=== PATIENT | female | born 1935 | race African-American/Black ===

== ENCOUNTER 2017-05-30 10:05 | Inpatient (IN) | payer MEDICARE, MEDICAID ==
[~2017-05-30] VITALS: Ht 157.5 cm; Wt 49.9 kg
[~2017-05-30 10:05] MED LIST: ASPIR 8181 MG ORAL; AVAPRO150 MG ORAL; NORVASC5 MG ORAL; RISPERDAL1 MG ORAL; Simvastatin; THIAMINE HCL100 MG ORAL; klonopin
[2017-05-30] MEDS ORDERED: MELATONIN3 MG ORAL (10:10)
[2017-05-30] MEDS ORDERED: Sodium Chloride 500ML 500 ML IV ONE (10:13)
[2017-05-30] MEDS ORDERED: Morphine Sulfate 2mg/ml Inj IM ONE (10:15)
[2017-05-30] MEDS ORDERED: ECOTRIN81 MG PO (10:16)
[2017-05-30] MEDS ORDERED: FISH OIL 1,0001 EAC5 ORAL (10:16)
[2017-05-30] MEDS ORDERED: DOK100 M1 PO (10:16)
[2017-05-30] MEDS ORDERED: NITROFURANTOIN100 MG PO (10:16)
[2017-05-30] MEDS ORDERED: LEVOFLOXACIN500 MG ORAL (10:16)
[2017-05-30] MEDS ORDERED: MEGESTROL ACETA40 MG PO (10:16)
[2017-05-30] MEDS ORDERED: TRILEPTAL150 M2 PO (10:16)
[2017-05-30] MEDS ORDERED: SIMVASTATIN20 MG ORAL (10:16)
[2017-05-30] MEDS ORDERED: DONEPEZIL HCL10 M2 ORAL (10:16)
[2017-05-30] MEDS ORDERED: VITAMIN D400 INTLU ORAL (10:16)
[2017-05-30] MEDS ORDERED: GABAPENTIN100 MG ORAL (10:16)
--- NOTE | 2017-05-30 10:24 | Emergency Room Report ---
History of Present Illness General Chief Complaint: Abdominal Pain Source: Patient, EMS Present Illness HPI 82-year-old female who presents with bilateral groin area pain and hematuria that started this morning She straight caths herself for the past 13 years as she has a bladder prolapse issue and has difficulty emptying her bladder after a failed surgery to correct it She denies fevers, nausea, vomiting, back pain, diarrhea, rectal bleeding, gynecologic complaints She has not tried any medication for her pain, but reported constant achy and mild to moderate intensity, and she came mainly because she was worried about the blood she saw with catheterization Allergies: Coded Allergies: CODEINE (Verified Allergy, Mild, Itching, 01/31/14) Patient History Past Medical History: see triage record Reviewed Nursing Documentation: PMH: Agreed; PSxH: Agreed Nursing Documentation-PMH Hx Cardiac Problems: Yes Hx Hypertension: Yes Hx Asthma: Yes Hx Diabetes: Yes Hx Cancer: No Hx Gastrointestinal Problems: No Hx Cerebrovascular Accident: Yes Review of Systems All Other Systems: negative except mentioned in HPI Physical Exam Vital Signs Date Time Temp Pulse Resp B/P (MAP) Pulse Ox O2 Delivery O2 Flow Rate FiO2 05/30/17 10:03 97.7 86 18 154/94 96 Room Air 97.7 Sp02 EP Interpretation: reviewed, normal General Appearance: no apparent distress, alert, non-toxic Head: normocephalic Eyes: bilateral eye normal inspection, bilateral eye PERRL, bilateral eye EOMI ENT: normal ENT inspection, hearing grossly normal, normal pharynx, no angioedema, normal voice, moist mucus membranes Neck: normal inspection, full range of motion, supple, supple/symm/no masses Respiratory: chest non-tender, lungs clear, normal breath sounds, chest symmetrical, palpation of chest normal Cardiovascular #1: normal peripheral pulses, regular rate, rhythm Cardiovascular #2: 2+ radial (R), 2+ radial (L) Gastrointestinal: normal inspection, non tender, soft, no mass, no guarding, no rebound Rectal: deferred Genitourinary: normal inspection, no CVA tenderness Musculoskeletal: back normal, gait/station normal, normal range of motion, non- tender, no calf tenderness Neurologic: alert, responsive, 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 Treated UTI with IV Rocephin, will need to admit as recent Urine cx with MDR E coli. Still pending CT abdomen and pelvis, will admit. Rhythm Strip Diag. Results Rhythm Strip Time: 13:55 EP Interpretation: yes Rate: 63 Rhythm: NSR, no PVC's, no ectopy Last Vital Signs Date Time Temp Pulse Resp B/P (MAP) Pulse Ox O2 Delivery O2 Flow Rate FiO2 05/30/17 10:03 97.7 86 18 154/94 96 Room Air 97.7 Disposition: ADMITTED INPATIENT Condition: Stable Signed Out To: ABDIEL Ortiz M.D May 30, 2017 10:24
[2017-05-30 10:55] LABS: EOSINOPHILS % (AUTO) 1.5 % (0.0-3.0); HEMATOCRIT 36.2 % (37.0-47.0); LYMPHOCYTES % (AUTO) 30.8 % (20.0-45.0); MEAN CORPUSCULAR VOLUME 91 FL (80-99); MONOCYTES % (AUTO) 9.2 % (1.0-10.0); NEUTROPHILS % (AUTO) 56.4 % (45.0-75.0); PLATELET COUNT 151 K/UL (150-450); RED CELL DISTRIBUTION WIDTH 14.4 % (11.6-14.8); WHITE BLOOD COUNT 3.5 K/UL (4.8-10.8)
[2017-05-30 11:00] LABS: APPEARANCE,URINE TURBID; BILIRUBIN, URINE NEGATIVE (NEGATIVE); GLUCOSE, URINE (UA) NEGATIVE (NEGATIVE); KETONES,URINE NEGATIVE (NEGATIVE); LEUKOCYTE ESTERASE ,URINE 3+ (NEGATIVE); NITRITE,URINE NEGATIVE (NEGATIVE); PH,URINE 8 (4.5-8.0); PROTEIN,URINE 2+ (NEGATIVE); UROBILINOGEN,URINE NORMAL MG/DL (0.0-1.0)
[2017-05-30 11:07] LABS: COLOR,URINE YELLOW
[2017-05-30 11:09] LABS: ANION GAP 6 mmol/L (5-15); BLOOD UREA NITROGEN 15 mg/dL (7-18); CALCIUM 9.5 MG/DL (8.5-10.1); CARBON DIOXIDE 26 MMOL/L (21-32); CHLORIDE 107 MMOL/L (98-107); CREATININE 0.7 MG/DL (0.55-1.30); POTASSIUM 4.9 MMOL/L (3.5-5.1); SODIUM 139 MMOL/L (136-145)
[2017-05-30 11:15] LABS: ALANINE AMINOTRANSFERASE 23 U/L (12-78); ALBUMIN 3.1 G/DL (3.4-5.0); ALBUMIN/GLOBULIN RATIO 0.7 (1.0-2.7); ALKALINE PHOSPHATASE 67 U/L (46-116); ASPARTATE AMINO TRANSFERASE 56 U/L (15-37); BILIRUBIN,TOTAL 0.5 MG/DL (0.2-1.0)
[2017-05-30 11:18] VITALS: BP 151/57
[2017-05-30] MEDS ORDERED: cefTRIAXone 1 GM in D5W 55 ML IVPB ONE (12:15)
[2017-05-30 13:01] VITALS: BP 164/71
--- NOTE | 2017-05-30 14:46 | Diagnostic Imaging Report ---
Clinical Indication: Abdominal pain, bilateral groin area pain and hematuria started this morning Technique: Patient given oral contrast. IV administration nonionic contrast. Venous phase spiral acquisition obtained through the abdomen and pelvis. Multiplanar reconstructions were generated. Total dose length product 578.51 mGycm. CTDIvol(s) 12.1 mGy. Dose reduction achieved using automated exposure control Comparison: none Findings: There are occasional colonic diverticula. No evidence of diverticulitis. Moderate amount of retained stool is seen within the colon. The appendix is not definitely visualized, but there are no findings to suggest acute appendicitis. No small bowel distention or small bowel wall thickening. Contrast is seen throughout the entirety of the small bowel and well into the colon. There is some wall thickening of the distal esophagus. The stomach is grossly unremarkable. The duodenum is unremarkable. No free intraperitoneal air is evident. A small amount of fluid is seen within the pelvis and over the dome of the liver. The liver demonstrates surface nodularity. Recannulized paraumbilical vein varices are demonstrated. The portal vein is somewhat dilated. No focal hepatic abnormality demonstrated. The gallbladder is unremarkable. The pancreas, spleen, adrenals, kidneys are unremarkable. No retroperitoneal or mesenteric mass or adenopathy. No pelvic mass or adenopathy. The bladder demonstrates diffuse wall thickening. Calculi are seen dependently within the bladder lumen posteriorly. Some of these may be within the bladder wall as well. The included lung bases are clear except for some posterior dependent atelectatic changes. The bones demonstrate a anterior wedge/burst compression fracture deformity of the T11 vertebral body, with considerable retropulsion of the posterior wall. The acuity of this is indeterminate, but sclerosis of the posterior body suggests that this is chronic. There is also a less severe wedge compression fracture deformity of the T9 vertebral body. There are degenerative changes of the lower lumbar spine. There is suggestion of slight superior endplate compression deformities of the L3 and L5 vertebral segments. Impression: Thick walled bladder. This could indicate cystitis or chronic bladder outlet obstruction. Dependent calcifications are seen within the bladder lumen. Some of these may also be within the bladder wall. Hepatic surface nodularity consistent with cirrhosis Evidence of portal hypertension, with recanalized periumbilical vein varices and trace ascites Colonic diverticulosis. No evidence of diverticulitis Moderate retained stool; correlate with any history of constipation Distal esophageal mild wall thickening, could indicate esophagitis. Correlate with clinical findings Anterior wedge/burst compression fracture deformity of the T11 vertebral body with posterior retropulsion. Age indeterminate although suspect chronic. Consider MRI for further evaluation if this is symptomatic or otherwise clinically relevant Age-indeterminate less severe wedge compression fracture deformity of the T9 vertebral body. There are are also possible slight superior endplate compression deformities of the L3 and L5 vertebral bodies Posterior dependent pulmonary atelectasis, degenerative lumbar spondylosis incidentally noted The CT scanner at [facility] is accredited by the [employer] and the scans are performed using protocols designed to limit radiation exposure to as low as reasonably achievable to attain images of sufficient resolution adequate for diagnostic evaluation.
[2017-05-30 14:56] VITALS: BP 168/89
[2017-05-30 16:00] VITALS: BP_SYST 136; BP_SYST 148; BP_DIAS 73; BP_DIAS 74
--- NOTE | 2017-05-30 16:49 | Consultation ---
Consult Note Consult Note 82-year-old female who presents with bilateral groin area pain and hematuria that started this morning She straight caths herself for the past 13 years as she has a bladder prolapse issue and has difficulty emptying her bladder after a failed surgery to correct it She denies fevers, nausea, vomiting, back pain, diarrhea, rectal bleeding, gynecologic complaints She has not tried any medication for her pain, but reported constant achy and mild to moderate intensity, and she came mainly because she was worried about the blood she saw with catheterization Allergies: Coded Allergies: CODEINE (Verified Allergy, Mild, Itching, 01/31/14) Patient History Past Medical History: see triage record Reviewed Nursing Documentation: PMH: Agreed; PSxH: Agreed Hx Cardiac Problems: Yes Hx Hypertension: Yes Hx Asthma: Yes Hx Diabetes: Yes Hx Cerebrovascular Accident: Yes Assessment/Plan UTI Bladder Prolapse Psych Ds roldan Rocephin ? Uro eval monitor renal parameters RODRIGO DEJESUS May 30, 2017 16:49
[2017-05-30] MEDS: Docusate 100mg cap ORAL SCH (17:18)
--- NOTE | 2017-05-30 18:52 | Consultation ---
History of Present Illness General Date patient seen: May 30, 2017 Time patient seen: 18:48 Chief Complaint: Abdominal Pain Referring physician: Jim Reason for Consultation: Urinary retention Present Illness HPI 82 yo female with hx of bladder dysfunction/prolapse. Failed repair. Self catheterization dependent for past few years. Noted hematuria on catheterization and abdominal pain. Has had UTIs before. Allergies: Coded Allergies: CODEINE (Verified Allergy, Mild, Itching, 01/31/14) Medication History Scheduled Amlodipine Besylate (Norvasc), 5 MG ORAL DAILY Aspirin (Ecotrin), 81 MG PO DAILY, (Reported) Aspirin* (Aspir 81*), 81 MG ORAL DAILY, (Reported) Docusate Sodium (Dok), 100 MG PO BID, (Reported) Donepezil Hcl* (Donepezil Hcl*), 10 MG ORAL DAILY, (Reported) Gabapentin* (Gabapentin*), 100 MG ORAL BID, (Reported) Irbesartan* (Avapro*), 150 MG ORAL DAILY Levofloxacin (Levofloxacin*), 500 MG ORAL DAILY, (Reported) Megestrol Acetate (Megestrol Acetate), 40 MG PO BID, (Reported) Nitrofurantoin Macrocrystal (Nitrofurantoin), 100 MG PO BID, (Reported) [place]-3 Fatty Acids/Fish Oil (Fish Oil 1,000 Mg Capsule), 1 CAP ORAL DAILY, ( Reported) Oxcarbazepine (Oxcarbazepine), 150 MG PO DAILY, (Reported) Risperidone* (Risperdal*), 0.5 MG ORAL Q12HR Simvastatin (Zocor), 20 MG ORAL DAILY, (Reported) Thiamine Hcl (Vitamin B1*), 100 MG ORAL DAILY Vitamin D (Vitamin D3), 1,000 UNITS ORAL DAILY, (Reported) Scheduled PRN Melatonin (Melatonin), 3 MG ORAL BEDTIME PRN for Insomnia, (Reported) Miscellaneous Medications [Simvastatin], (Reported) [klonopin], (Reported) Patient History History Provided By: Patient Healthcare decision maker N Resuscitation status Advanced Directive on File Past Medical/Surgical History Past Medical/Surgical History: (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, multifocal, multiple vascular territories, chronic (3) Stroke (4) Urinary tract infection Review of Systems All Other Systems: negative except mentioned in HPI Physical Exam General Appearance: no apparent distress HEENT: normocephalic, atraumatic Neck: supple Respiratory/Chest: lungs clear Cardiovascular/Chest: normal rate Abdomen: soft Genitourinary/Rectal: normal genital exam Last 24 Hour Vital Signs Date Time Temp Pulse Resp B/P (MAP) Pulse Ox O2 Delivery O2 Flow Rate FiO2 05/30/17 16:19 68 17 148/67 98 Room Air 05/30/17 16:00 97.3 57 19 148/73 94 97.3 05/30/17 14:56 76 17 168/89 99 Room Air 05/30/17 13:01 63 16 164/71 97 Room Air 05/30/17 11:52 97.7 05/30/17 11:18 64 19 151/57 100 Room Air 05/30/17 11:13 97.7 05/30/17 10:03 97.7 86 18 154/94 96 Room Air 97.7 Laboratory Tests Test 05/30/17 10:32 05/30/17 10:39 White Blood Count 3.5 K/UL (4.8-10.8) L Red Blood Count 4.00 M/UL (4.20-5.40) L Hemoglobin 12.0 G/DL (12.0-16.0) Hematocrit 36.2 % (37.0-47.0) L Mean Corpuscular Volume 91 FL (80-99) Mean Corpuscular Hemoglobin 30.0 PG (27.0-31.0) Mean Corpuscular Hemoglobin Concent 33.1 G/DL (32.0-36.0) Red Cell Distribution Width 14.4 % (11.6-14.8) Platelet Count 151 K/UL (150-450) Mean Platelet Volume 8.8 FL (6.5-10.1) Neutrophils (%) (Auto) 56.4 % (45.0-75.0) Lymphocytes (%) (Auto) 30.8 % (20.0-45.0) Monocytes (%) (Auto) 9.2 % (1.0-10.0) Eosinophils (%) (Auto) 1.5 % (0.0-3.0) Basophils (%) (Auto) 2.0 % (0.0-2.0) Sodium Level 139 MMOL/L (136-145) Potassium Level 4.9 MMOL/L (3.5-5.1) Chloride Level 107 MMOL/L (98-107) Carbon Dioxide Level 26 MMOL/L (21-32) Anion Gap 6 mmol/L (5-15) Blood Urea Nitrogen 15 mg/dL (7-18) Creatinine 0.7 MG/DL (0.55-1.30) Estimat Glomerular Filtration Rate mL/min (>60) Glucose Level 85 MG/DL (74-106) Calcium Level 9.5 MG/DL (8.5-10.1) Total Bilirubin 0.5 MG/DL (0.2-1.0) Aspartate Amino Transf (AST/SGOT) 56 U/L (15-37) H Alanine Aminotransferase (ALT/SGPT) 23 U/L (12-78) Alkaline Phosphatase 67 U/L (46-116) C-Reactive Protein, Quantitative 0.9 mg/dL (0.00-0.90) Total Protein 7.7 G/DL (6.4-8.2) Albumin 3.1 G/DL (3.4-5.0) L Globulin 4.6 g/dL Albumin/Globulin Ratio 0.7 (1.0-2.7) L Lipase 179 U/L (73-393) Urine Color Yellow Urine Appearance Turbid Urine pH 8 (4.5-8.0) Urine Specific [place] 1.015 (1.005-1.035) Urine Protein 2+ (NEGATIVE) H Urine Glucose (UA) Negative (NEGATIVE) Urine Ketones Negative (NEGATIVE) Urine Occult Blood 4+ (NEGATIVE) H Urine Nitrite Negative (NEGATIVE) Urine Bilirubin Negative (NEGATIVE) Urine Urobilinogen Normal MG/DL (0.0-1.0) Urine Leukocyte Esterase 3+ (NEGATIVE) H Urine RBC 5-10 /HPF (0 - 2) H Urine WBC 30-40 /HPF (0 - 2) H Urine Squamous Epithelial Cells Moderate /LPF (NONE/OCC) H Urine Bacteria Many /HPF (NONE) H Height (Feet): 5 Height (Inches): 2.00 Weight (Pounds): 110 Medications Current Medications Medications (Trade) Dose Ordered Sig/Nenita Route PRN Reason Start Time Stop Time Status Last Admin Dose Admin Amlodipine Besylate (Norvasc) 5 mg DAILY ORAL 05/31/17 09:00 06/30/17 08:59 Aspirin (Ecotrin) 81 mg DAILY ORAL 05/31/17 09:00 06/30/17 08:59 Atorvastatin Calcium (Lipitor) 10 mg QHS ORAL 05/30/17 21:00 06/29/17 20:59 Ceftriaxone Sodium 1 gm/ Dextrose 55 ml @ 110 mls/hr Q24H IVPB 05/31/17 13:00 06/07/17 12:59 Docusate Sodium (Colace) 100 mg BID ORAL 05/30/17 18:00 06/29/17 17:59 05/30/17 17:18 Donepezil HCl (Aricept) 10 mg DAILY ORAL 05/31/17 09:00 06/30/17 08:59 Fish Oil (Fish Oil) 1,000 mg DAILY ORAL 05/31/17 09:00 06/30/17 08:59 Gabapentin (Neurontin) 100 mg BID ORAL 05/30/17 18:00 06/29/17 17:59 05/30/17 17:18 Irbesartan (Avapro) 150 mg DAILY ORAL 05/31/17 09:00 06/30/17 08:59 Megestrol Acetate (Megace) 40 mg TWICE A DAY ORAL 05/30/17 18:00 06/29/17 17:59 05/30/17 17:18 Oxcarbazepine (Trileptal) 150 mg DAILY ORAL 05/31/17 09:00 06/30/17 08:59 Risperidone (RisperDAL) 0.5 mg Q12H PRN ORAL Agitation 05/30/17 17:00 06/29/17 16:59 Thiamine HCl (Vitamin B1) 100 mg DAILY ORAL 05/31/17 09:00 06/30/17 08:59 Vitamin D (Vitamin D) 1,000 intlu DAILY ORAL 05/31/17 09:00 06/30/17 08:[address] reviewed: distended bladder, thickened, small stones in bladder Procedure: Under sterile conditions 18 slovenian roldan catheter placed. No blood seen. Irrigated and no clots seen. Assessment/Plan Status: stable Assessment/Plan 82 yo female with nonfunctional bladder. Self catheterizes 2-3 times a day. Recent hematuria noted. UTI on workup. Given bladder stones and chronic retention, roldan placed. Recommend keeping roldan for duration of treatment. Given complex nature of UTI and likely drug resistance recommend 10-14 days. 1. IV abx 2. f/u urine culture 3. continue roldan till UTI treatment complete 4. f/u own urologist, Dr. Calderon. Chris Min M.D. May 30, 2017 18:52
[2017-05-30 20:00] VITALS: BP 116/69
[2017-05-30 23:50] VITALS: BP 96/55
[2017-05-31] MEDS: Docusate 100mg cap ORAL SCH ×2 (08:17→16:57)
[2017-05-31] MEDS: Donepezil 10mg tab ORAL SCH (08:17)
[2017-05-31] MEDS: Aspirin EC 81mg tab ORAL SCH ×2 (08:17→09:00)
[2017-05-31] MEDS: Thiamine 100mg tab ORAL SCH (08:18)
[2017-05-31] MEDS: Irbesartan 150mg tablet ORAL SCH (08:18)
[2017-05-31] MEDS: Vitamin D 1000 IU Tab ORAL SCH (08:18)
[2017-05-31] MEDS: OXcarbazepine 150mg tab ORAL SCH (08:18)
[2017-05-31 08:51] VITALS: BP 149/71
[2017-05-31 11:11] LABS: BASOPHILS % (AUTO) 1.8 % (0.0-2.0); EOSINOPHILS % (AUTO) 1.1 % (0.0-3.0); HEMATOCRIT 35.1 % (37.0-47.0); LYMPHOCYTES % (AUTO) 30.5 % (20.0-45.0); MEAN CORPUSCULAR VOLUME 91 FL (80-99); MONOCYTES % (AUTO) 8.8 % (1.0-10.0); NEUTROPHILS % (AUTO) 57.8 % (45.0-75.0); PLATELET COUNT 166 K/UL (150-450); RED BLOOD COUNT 3.86 M/UL (4.20-5.40); RED CELL DISTRIBUTION WIDTH 14.3 % (11.6-14.8); WHITE BLOOD COUNT 3.9 K/UL (4.8-10.8)
[2017-05-31 11:32] LABS: ALANINE AMINOTRANSFERASE 23 U/L (12-78); ALBUMIN 3.2 G/DL (3.4-5.0); ALBUMIN/GLOBULIN RATIO 0.8 (1.0-2.7); ALKALINE PHOSPHATASE 67 U/L (46-116); ANION GAP 9 mmol/L (5-15); ASPARTATE AMINO TRANSFERASE 27 U/L (15-37); BILIRUBIN,TOTAL 0.4 MG/DL (0.2-1.0); BLOOD UREA NITROGEN 12 mg/dL (7-18); CALCIUM 9.4 MG/DL (8.5-10.1); CARBON DIOXIDE 27 MMOL/L (21-32); CHLORIDE 104 MMOL/L (98-107); CREATININE 0.8 MG/DL (0.55-1.30); POTASSIUM 3.8 MMOL/L (3.5-5.1); SODIUM 140 MMOL/L (136-145)
[2017-05-31 12:00] VITALS: BP 109/57
[2017-05-31 12:30] LABS: PHOSPHORUS 3.9 MG/DL (2.5-4.9)
[2017-05-31] MEDS ORDERED: cefTRIAXone 1 GM in D5W 55 ML IVPB SCH (13:00)
[2017-05-31] MEDS: Piperacillin/Tazobactam 3.375 GM in D5W 110 ML IVPB SCH ×2 (13:52→21:59)
[2017-05-31 16:00] VITALS: BP 118/64
--- NOTE | 2017-05-31 19:05 | Consultation ---
History of Present Illness General Date patient seen: May 31, 2017 Chief Complaint: Abdominal Pain Referring physician: Jim Reason for Consultation: Urinary retention Present Illness Allergies: Coded Allergies: CODEINE (Verified Allergy, Mild, Itching, 01/31/14) Medication History Scheduled Amlodipine Besylate (Norvasc), 5 MG ORAL DAILY Aspirin (Ecotrin), 81 MG PO DAILY, (Reported) Aspirin* (Aspir 81*), 81 MG ORAL DAILY, (Reported) Docusate Sodium (Dok), 100 MG PO BID, (Reported) Donepezil Hcl* (Donepezil Hcl*), 10 MG ORAL DAILY, (Reported) Gabapentin* (Gabapentin*), 100 MG ORAL BID, (Reported) Irbesartan* (Avapro*), 150 MG ORAL DAILY Levofloxacin (Levofloxacin*), 500 MG ORAL DAILY, (Reported) Megestrol Acetate (Megestrol Acetate), 40 MG PO BID, (Reported) Nitrofurantoin Macrocrystal (Nitrofurantoin), 100 MG PO BID, (Reported) [place]-3 Fatty Acids/Fish Oil (Fish Oil 1,000 Mg Capsule), 1 CAP ORAL DAILY, ( Reported) Oxcarbazepine (Oxcarbazepine), 150 MG PO DAILY, (Reported) Risperidone* (Risperdal*), 0.5 MG ORAL Q12HR Simvastatin (Zocor), 20 MG ORAL DAILY, (Reported) Thiamine Hcl (Vitamin B1*), 100 MG ORAL DAILY Vitamin D (Vitamin D3), 1,000 UNITS ORAL DAILY, (Reported) Scheduled PRN Melatonin (Melatonin), 3 MG ORAL BEDTIME PRN for Insomnia, (Reported) Miscellaneous Medications [Simvastatin], (Reported) [klonopin], (Reported) Patient History Healthcare decision maker N Resuscitation status Advanced Directive on File Physical Exam Last 24 Hour Vital Signs Date Time Temp Pulse Resp B/P (MAP) Pulse Ox O2 Delivery O2 Flow Rate FiO2 05/31/17 16:00 97.6 70 19 118/64 98 97.6 05/31/17 12:00 99.5 72 20 109/57 97 99.5 05/31/17 08:51 97.9 74 16 149/71 96 97.9 05/31/17 08:19 74 149/71 05/31/17 08:18 149/71 05/30/17 23:50 97.2 60 18 96/55 97 97.2 05/30/17 20:00 97.5 62 18 116/69 97 97.5 Intake and Output 05/30/17 05/31/17 19:00 07:00 Intake Total 795 ml 295 ml Output Total 75 ml 1450 ml Balance 720 ml -1155 ml Intake Oral 240 ml 295 ml IV Total 555 ml Output Urine Total 75 ml 1450 ml Laboratory Tests Test 05/31/17 10:50 White Blood Count 3.9 K/UL (4.8-10.8) L Red Blood Count 3.86 M/UL (4.20-5.40) L Hemoglobin 12.0 G/DL (12.0-16.0) Hematocrit 35.1 % (37.0-47.0) L Mean Corpuscular Volume 91 FL (80-99) Mean Corpuscular Hemoglobin 31.0 PG (27.0-31.0) Mean Corpuscular Hemoglobin Concent 34.1 G/DL (32.0-36.0) Red Cell Distribution Width 14.3 % (11.6-14.8) Platelet Count 166 K/UL (150-450) Mean Platelet Volume 9.5 FL (6.5-10.1) Neutrophils (%) (Auto) 57.8 % (45.0-75.0) Lymphocytes (%) (Auto) 30.5 % (20.0-45.0) Monocytes (%) (Auto) 8.8 % (1.0-10.0) Eosinophils (%) (Auto) 1.1 % (0.0-3.0) Basophils (%) (Auto) 1.8 % (0.0-2.0) Sodium Level 140 MMOL/L (136-145) Potassium Level 3.8 MMOL/L (3.5-5.1) Chloride Level 104 MMOL/L (98-107) Carbon Dioxide Level 27 MMOL/L (21-32) Anion Gap 9 mmol/L (5-15) Blood Urea Nitrogen 12 mg/dL (7-18) Creatinine 0.8 MG/DL (0.55-1.30) Estimat Glomerular Filtration Rate mL/min (>60) Glucose Level 77 MG/DL (74-106) Hemoglobin A1c 5.3 % (4.3-6.0) Uric Acid 4.4 MG/DL (2.6-7.2) Calcium Level 9.4 MG/DL (8.5-10.1) Phosphorus Level 3.9 MG/DL (2.5-4.9) Magnesium Level 1.9 MG/DL (1.8-2.4) Total Bilirubin 0.4 MG/DL (0.2-1.0) Aspartate Amino Transf (AST/SGOT) 27 U/L (15-37) Alanine Aminotransferase (ALT/SGPT) 23 U/L (12-78) Alkaline Phosphatase 67 U/L (46-116) Pro-B-Type Natriuretic Peptide 109 pg/mL (0-125) Total Protein 7.4 G/DL (6.4-8.2) Albumin 3.2 G/DL (3.4-5.0) L Globulin 4.2 g/dL Albumin/Globulin Ratio 0.8 (1.0-2.7) L Thyroid Stimulating Hormone (TSH) 1.838 uiU/mL (0.358-3.740) Height (Feet): 5 Height (Inches): 2.00 Weight (Pounds): 110 Medications Current Medications Medications (Trade) Dose Ordered Sig/Nenita Route PRN Reason Start Time Stop Time Status Last Admin Dose Admin Acetaminophen (Tylenol) 650 mg QIDPRN PRN ORAL Mild Pain/Temp > 100.5 05/31/17 09:15 06/30/17 09:14 05/31/17 09:22 Amlodipine Besylate (Norvasc) 5 mg DAILY ORAL 05/31/17 09:00 06/30/17 08:59 05/31/17 08:19 Aspirin (Ecotrin) 81 mg DAILY ORAL 05/31/17 09:00 06/30/17 08:59 Atorvastatin Calcium (Lipitor) 10 mg QHS ORAL 05/30/17 21:00 06/29/17 20:59 05/30/17 21:28 Docusate Sodium (Colace) 100 mg BID ORAL 05/30/17 18:00 06/29/17 17:59 05/31/17 16:57 Donepezil HCl (Aricept) 10 mg DAILY ORAL 05/31/17 09:00 06/30/17 08:59 05/31/17 08:17 Fish Oil (Fish Oil) 1,000 mg DAILY ORAL 05/31/17 09:00 06/30/17 08:59 05/31/17 08:17 Gabapentin (Neurontin) 100 mg BID ORAL 05/30/17 18:00 06/29/17 17:59 05/31/17 16:57 Irbesartan (Avapro) 150 mg DAILY ORAL 05/31/17 09:00 06/30/17 08:59 05/31/17 08:18 Megestrol Acetate (Megace) 40 mg TWICE A DAY ORAL 05/30/17 18:00 06/29/17 17:59 05/31/17 16:57 Oxcarbazepine (Trileptal) 150 mg DAILY ORAL 05/31/17 09:00 06/30/17 08:59 05/31/17 08:18 Piperacillin Sod/ Tazobactam Sod 3.375 gm/Dextrose 110 ml @ 27.5 mls/hr EVERY 8 HOURS IVPB 05/31/17 14:00 06/05/17 13:59 05/31/17 13:52 Risperidone (RisperDAL) 0.5 mg Q12H PRN ORAL Agitation 05/30/17 17:00 06/29/17 16:59 Thiamine HCl (Vitamin B1) 100 mg DAILY ORAL 05/31/17 09:00 06/30/17 08:59 05/31/17 08:18 Vitamin D (Vitamin D) 1,000 intlu DAILY ORAL 05/31/17 09:00 06/30/17 08:59 05/31/17 08:18 Assessment/Plan Assessment/Plan (1) Multiple Joint OA (2) Multiple Joint Pain seen dictated SAUNDRA BENNETT May 31, 2017 19:04
[2017-05-31 21:00] VITALS: BP 121/79
[2017-05-31] MEDS: Analgesic Balm 15gm TOPIC SCH (21:00)
--- NOTE | 2017-05-31 22:00 | Consultation ---
DATE OF CONSULTATION: 05/31/2017 INFECTIOUS DISEASE CONSULTATION CONSULTING PHYSICIAN: Todd Fry M.D. PRIMARY ATTENDING PHYSICIAN: Yinka Fernandez M.D. REASON FOR CONSULT: Complicated UTI. HISTORY OF PRESENT ILLNESS: This is an 82-year-old female, admitted yesterday complaining of abdominal pain and hematuria. The patient has history of bladder prolapse and had failed correction surgery many years ago, and in the past 13 years, she used self-catheterization two to three times a day. At the time of admission, had groin pain bilaterally. PAST MEDICAL HISTORY: Significant for urinary retention, bladder prolapse, and dementia. ALLERGIES: The patient is allergic to codeine. MEDICATIONS: Getting ceftriaxone, Tylenol, Norvasc, aspirin, thiamine, Aricept, fish oil, Trileptal, Lipitor, Colace, Megace, and Risperdal. SOCIAL HISTORY: Lives at home. No history of drinking for 25 years. Quit smoking many years ago. . REVIEW OF SYSTEMS: She has poor appetite. No nausea. No vomiting. No diarrhea. No fever. At the time of examination, no abdominal pain, but has left thigh pain. Has on and off back pain. PHYSICAL EXAMINATION: VITAL SIGNS: Temperature 97.9 degrees, pulse 74, and blood pressure is 149/71. GENERAL APPEARANCE: No acute distress. HEAD AND NECK: Has denture. No oral lesion. HEART: Regular. LUNGS: Clear. ABDOMEN: Soft. EXTREMITIES: She has no edema. GENITOURINARY: She has Valenzuela catheter with hematuria. LABORATORY AND DIAGNOSTIC DATA: WBC 3.5, hemoglobin 12, hematocrit 36.2, and platelets 151. Sodium 139, potassium 4.9, chloride 107, bicarb 26, BUN 15, creatinine 0.5, and glucose 85. AST was elevated at 56. The patient had a CT scan of the abdomen and pelvis, which showed evidence of thickened bladder wall, likely cystitis, cirrhosis with portal hypertension, diverticulosis without diverticulitis, compression fracture of T9 and T11. Blood culture growing Gram-negative bacilli and gram-positive organism. IMPRESSION: Complicated urinary tract infection in a patient, who had history of bladder prolapse and dysfunctioning. Has hematuria. Has evidence of cirrhosis, portal hypertension, diverticulosis, and has dementia. RECOMMENDATION: We will change antibiotic from Rocephin to Zosyn. We will follow up the cultures. At the end of my exam, I thank Dr. Fernandez for involving me in the care of this patient. Todd Fry M.D. DR: MARCELO JOB#: [id number] CC: AMY
--- NOTE | 2017-06-01 04:00 | Consultation ---
DATE OF CONSULTATION: 05/31/2017 PAIN MANAGEMENT CONSULTATION CONSULTING PHYSICIAN: Flip Thapa M.D. REFERRING PHYSICIAN: Yinka Fernandez M.D. PHYSICIAN IMPRESSION PRINTER: Jesús Santiago CHIEF COMPLAINT: Joint pain. HISTORY OF PRESENT ILLNESS: This is an 82-year-old female, who is being seen on the Med/Surg floor of [facility] for initial comprehensive pain management consultation. The patient was admitted under the care of Dr. Fernandez. She is complaining of urinary issues and difficulty emptying her bladder having hematuria. Valenzuela in place. Being seen by raw sampler, having pain, started on Tylenol 650 mg tablet one tablet every 6 hours as needed for pain. The patient is comfortable at this time. We were consulted so that the patient would have adequate pain control while here in the hospital. PAST MEDICAL HISTORY: Dementia, CVA, hypercholesterolemia, hypertension, COPD, asthma, neurogenic bladder, and diabetes. ALLERGIES: Codeine. SOCIAL HISTORY: Denies smoking tobacco, drinking alcohol, and IV drug abuse. REVIEW OF SYSTEMS: Denies rash, fever, chills, sweating, dizziness, drowsiness, blurred vision, sore throat, or change in weight. She is complaining of joint pain. PHYSICAL EXAMINATION: GENERAL: Alert, awake, and oriented. VITAL SIGNS: Blood pressure 118/64, heart rate 70, oxygen saturation 98%, respiratory rate 17, and temperature is 97.6 degrees Fahrenheit. HEENT: PERRLA. NECK: Range of motion is full in all directions. No tenderness to paracervical muscles. No adenopathy. LUNGS: Decreased breath sounds bilaterally. HEART: Regular. ABDOMEN: Benign. BACK: Range of motion is decreased in flexion and extension. EXTREMITIES: Upper and lower extremity range of motion is decreased due to the patient's pain and condition. No cyanosis. No clubbing. No edema. Sensory is intact. Reflexes are not obtainable. No adenopathy. ASSESSMENT AND PLAN: This is an 82-year-old female with multiple joint osteoarthritis, multiple joint pain. The patient will be continued on Tylenol as needed and will be started on Bengay to be applied one application 4 times a day. The patient was discussed with Dr. Thapa and Dr. Thapa concurred. We will follow the patient. Thank you very much for the courtesy of this consultation. Flip Thapa M.D. TRE Santiago DR: DAIN JOB#: [id number] CC: AMY
[2017-06-01] MEDS: Piperacillin/Tazobactam 3.375 GM in D5W 110 ML IVPB SCH (06:06)
[2017-06-01 07:23] LABS: HEMATOCRIT 32.7 % (37.0-47.0); HEMOGLOBIN 11.1 G/DL (12.0-16.0); MEAN CORPUSCULAR VOLUME 90 FL (80-99); PLATELET COUNT 157 K/UL (150-450); RED BLOOD COUNT 3.65 M/UL (4.20-5.40); RED CELL DISTRIBUTION WIDTH 14.2 % (11.6-14.8); WHITE BLOOD COUNT 3.4 K/UL (4.8-10.8)
[2017-06-01 07:38] LABS: ALANINE AMINOTRANSFERASE 19 U/L (12-78); ALBUMIN 2.7 G/DL (3.4-5.0); ALBUMIN/GLOBULIN RATIO 0.7 (1.0-2.7); ALKALINE PHOSPHATASE 59 U/L (46-116); ANION GAP 10 mmol/L (5-15); ASPARTATE AMINO TRANSFERASE 27 U/L (15-37); BILIRUBIN,TOTAL 0.3 MG/DL (0.2-1.0); BLOOD UREA NITROGEN 14 mg/dL (7-18); CALCIUM 8.9 MG/DL (8.5-10.1); CARBON DIOXIDE 25 MMOL/L (21-32); CHLORIDE 107 MMOL/L (98-107); POTASSIUM 4.1 MMOL/L (3.5-5.1); SODIUM 142 MMOL/L (136-145)
[2017-06-01 08:20] VITALS: BP 98/57
--- NOTE | 2017-06-01 08:45 | History and Physical Report ---
DATE OF ADMISSION: 05/30/2017 NOTE: POOR AUDIO HISTORY OF PRESENT ILLNESS: The patient admitted for complicated urinary tract infection. The patient has also been catheterizing herself at home for the atonic bladder. The patient got assessed in the ER . The patient also had some suprapubic tenderness. Also, . Denies nausea, vomiting, or diarrhea. Denies abdominal pain. Does have some suprapubic tenderness. Denies shortness of breath. Denies cough. PAST MEDICAL HISTORY: Atonic bladder, constipation, organic brain syndrome, psychosis, hyperlipidemia, history of CVA, history of hypertension, and . PAST SURGICAL HISTORY: Hysterectomy, bladder surgery, . ALLERGIES: Codeine. MEDICATIONS: Aspirin, Norvasc, benazepril, Colace, Avapro, simvastatin, and thiamine. FAMILY HISTORY: Noncontributory. SOCIAL HISTORY: Denies history of drug or alcohol abuse. No history of smoking. REVIEW OF SYSTEMS: HEENT: Denies headaches. RESPIRATORY: Denies shortness of breath. Denies cough. CARDIOVASCULAR: Denies chest pain. . NEUROLOGIC: Denies change in vision or speech pattern. PHYSICAL EXAMINATION: VITAL SIGNS: Temperature 97.9, pulse is 74, and blood pressure 149/71. HEENT: PERRLA. NECK: Supple. No lymphadenopathy. CHEST: Clear to auscultation. GASTROINTESTINAL: Soft, nondistended. Positive bowel sounds. No organomegaly. Abdomen is soft. EXTREMITIES: No edema. Reflexes equal on both sides. NEUROLOGIC: Lower extremity weakness. LABORATORY DATA: WBC of 3.5, hemoglobin of 12, and platelets 151,000. Sodium 139, potassium 4.9, BUN of 15, creatinine of 0.7, and glucose of 85. Albumin of 3.1. ASSESSMENT AND PLAN: Complicated urinary tract infection, chronic pain syndrome. I have asked Dr. Thapa, Dr. Guadalupe as well as Dr. Pako Ortiz to see the patient for the above-mentioned diagnoses and treatment as well as Infectious Disease, Dr. will monitor the patient closely. Yinka Fernandez M.D. DR: Tyrese JOB#: [id number] CC:
--- NOTE | 2017-06-01 08:58 | General Progress Note ---
Assessment/Plan Assessment/Plan (1) Multiple Joint OA (2) Multiple Joint Pain She will be continued on Bengay and Tylenol as needed D/w Dr. Thapa he concurred. Subjective Date patient seen: Jun 01, 2017 Time patient seen: 07:00 - am Allergies: Coded Allergies: CODEINE (Verified Allergy, Mild, Itching, 01/31/14) Subjective REVIEW OF SYSTEMS: Denies rash, fever, chills, sweating, dizziness, drowsiness, blurred vision, sore throat, or change in weight. She is complaining of joint pain. SUBJECTIVE: Patient is in bed reporting no pain at this time. She is comfortable and shows no signs of distress. Objective Last 24 Hour Vital Signs Date Time Temp Pulse Resp B/P (MAP) Pulse Ox O2 Delivery O2 Flow Rate FiO2 06/01/17 08:20 97.7 74 20 98/57 98 97.7 05/31/17 21:00 99.7 69 18 121/79 98 99.7 05/31/17 16:00 97.6 70 19 118/64 98 97.6 05/31/17 12:00 99.5 72 20 109/57 97 99.5 Intake and Output 05/31/17 06/01/17 19:00 07:00 Intake Total 360 ml 360 ml Output Total 450 ml 1500 ml Balance -90 ml -1140 ml Intake Oral 360 ml 360 ml Output Urine Total 450 ml 1500 ml # Bowel Movements 1 Laboratory Tests 05/31/17 10:50: White Blood Count 3.9L, Red Blood Count 3.86L, Hemoglobin 12.0, Hematocrit 35.1L , Mean Corpuscular Volume 91, Mean Corpuscular Hemoglobin 31.0, Mean Corpuscular Hemoglobin Concent 34.1, Red Cell Distribution Width 14.3, Platelet Count 166, Mean Platelet Volume 9.5, Neutrophils (%) (Auto) 57.8, Lymphocytes (% ) (Auto) 30.5, Monocytes (%) (Auto) 8.8, Eosinophils (%) (Auto) 1.1, Basophils ( %) (Auto) 1.8, Sodium Level 140, Potassium Level 3.8, Chloride Level 104, Carbon Dioxide Level 27, Anion Gap 9, Blood Urea Nitrogen 12, Creatinine 0.8, Estimat Glomerular Filtration Rate , Glucose Level 77, Hemoglobin A1c 5.3, Uric Acid 4.4, Calcium Level 9.4, Phosphorus Level 3.9, Magnesium Level 1.9, Total Bilirubin 0.4, Aspartate Amino Transf (AST/SGOT) 27, Alanine Aminotransferase ( ALT/SGPT) 23, Alkaline Phosphatase 67, Pro-B-Type Natriuretic Peptide 109, Total Protein 7.4, Albumin 3.2L, Globulin 4.2, Albumin/Globulin Ratio 0.8L, Thyroid Stimulating Hormone (TSH) 1.838 06/01/17 05:45: White Blood Count 3.4L, Red Blood Count 3.65L, Hemoglobin 11.1L, Hematocrit 32.7L, Mean Corpuscular Volume 90, Mean Corpuscular Hemoglobin 30.5, Mean Corpuscular Hemoglobin Concent 34.0, Red Cell Distribution Width 14.2, Platelet Count 157, Mean Platelet Volume 9.0, Neutrophils (%) (Auto) , Lymphocytes (%) ( Auto) , Monocytes (%) (Auto) , Eosinophils (%) (Auto) , Basophils (%) (Auto) , Sodium Level 142, Potassium Level 4.1, Chloride Level 107, Carbon Dioxide Level 25, Anion Gap 10, Blood Urea Nitrogen 14, Creatinine 1.0, Estimat Glomerular Filtration Rate , Glucose Level 77, Calcium Level 8.9, Total Bilirubin 0.3, Aspartate Amino Transf (AST/SGOT) 27, Alanine Aminotransferase (ALT/SGPT) 19, Alkaline Phosphatase 59, Total Protein 6.5, Albumin 2.7L, Globulin 3.8, Albumin/ Globulin Ratio 0.7L, Neutrophils % (Manual) [Pending], Lymphocytes % (Manual) [ Pending], Platelet Estimate [Pending], Platelet Morphology [Pending] Height (Feet): 5 Height (Inches): 2.00 Weight (Pounds): 110 Objective GENERAL: Alert, awake, and oriented. HEENT: PERRLA. NECK: Range of motion is full in all directions. No tenderness to paracervical muscles. No adenopathy. LUNGS: Decreased breath sounds bilaterally. HEART: Regular. ABDOMEN: Benign. BACK: Range of motion is decreased in flexion and extension. EXTREMITIES: Upper and lower extremity range of motion is decreased due to the patient's pain and condition. No cyanosis. No clubbing. No edema. Sensory is intact. Reflexes are not obtainable. No adenopathy. SAUNDRA BENNETT Jun 01, 2017 08:58
[2017-06-01] MEDS: Irbesartan 150mg tablet ORAL SCH (09:00)
[2017-06-01] MEDS: Analgesic Balm 15gm TOPIC SCH ×2 (09:00→13:00)
[2017-06-01] MEDS: OXcarbazepine 150mg tab ORAL SCH (09:11)
[2017-06-01] MEDS: Aspirin EC 81mg tab ORAL SCH (09:11)
[2017-06-01] MEDS: Vitamin D 1000 IU Tab ORAL SCH (09:11)
[2017-06-01] MEDS: Donepezil 10mg tab ORAL SCH (09:11)
[2017-06-01] MEDS: Thiamine 100mg tab ORAL SCH (09:12)
[2017-06-01] MEDS: Docusate 100mg cap ORAL SCH ×2 (09:12→17:09)
[2017-06-01 11:47] VITALS: BP 101/62
--- NOTE | 2017-06-01 12:50 | Consultation ---
History of Present Illness General Date patient seen: May 31, 2017 Chief Complaint: Abdominal Pain Referring physician: Jim Reason for Consultation: Urinary retention Present Illness HPI 82-year-old female who presents with bilateral groin area pain and hematuria. The pt has hx of dementia and agitation. The pt was c/o abdominal pain. The pt was confused and was unable to have rational conversation. No agitation.The pt was admitted on risperdal and aricept. the pt has impairment of cognition. Allergies: Coded Allergies: CODEINE (Verified Allergy, Mild, Itching, 01/31/14) Medication History Scheduled Amlodipine Besylate (Norvasc), 5 MG ORAL DAILY Aspirin (Ecotrin), 81 MG PO DAILY, (Reported) Aspirin* (Aspir 81*), 81 MG ORAL DAILY, (Reported) Docusate Sodium (Dok), 100 MG PO BID, (Reported) Donepezil Hcl* (Donepezil Hcl*), 10 MG ORAL DAILY, (Reported) Gabapentin* (Gabapentin*), 100 MG ORAL BID, (Reported) Irbesartan* (Avapro*), 150 MG ORAL DAILY Levofloxacin (Levofloxacin*), 500 MG ORAL DAILY, (Reported) Megestrol Acetate (Megestrol Acetate), 40 MG PO BID, (Reported) Nitrofurantoin Macrocrystal (Nitrofurantoin), 100 MG PO BID, (Reported) Hastings-3 Fatty Acids/Fish Oil (Fish Oil 1,000 Mg Capsule), 1 CAP ORAL DAILY, ( Reported) Oxcarbazepine (Oxcarbazepine), 150 MG PO DAILY, (Reported) Risperidone* (Risperdal*), 0.5 MG ORAL Q12HR Simvastatin (Zocor), 20 MG ORAL DAILY, (Reported) Thiamine Hcl (Vitamin B1*), 100 MG ORAL DAILY Vitamin D (Vitamin D3), 1,000 UNITS ORAL DAILY, (Reported) Scheduled PRN Melatonin (Melatonin), 3 MG ORAL BEDTIME PRN for Insomnia, (Reported) Miscellaneous Medications [Simvastatin], (Reported) [klonopin], (Reported) Patient History Limited by: medical condition History Provided By: Patient, Medical Record, PMD Healthcare decision maker N Resuscitation status Advanced Directive on File Past Medical/Surgical History Past Medical/Surgical History: (1) Encephalopathy, hypertensive (2) HTN (hypertension), benign (3) Hematuria (4) Urinary tract infection (5) Stroke (6) Vascular dementia with delirium (7) Arterial ischemic stroke, multifocal, multiple vascular territories, chronic Review of Systems Psychiatric: Reports: prior hx, anxiety, depressed feelings, emotional problems Physical Exam General Appearance: WD/WN, no apparent distress, alert, confused Neurologic: depressed affect Last 24 Hour Vital Signs Date Time Temp Pulse Resp B/P (MAP) Pulse Ox O2 Delivery O2 Flow Rate FiO2 06/01/17 11:47 98.2 72 20 101/62 98 98.2 06/01/17 10:11 97.7 06/01/17 09:12 97.7 06/01/17 09:00 98/57 06/01/17 09:00 74 98/57 06/01/17 08:20 97.7 74 20 98/57 98 97.7 05/31/17 21:00 99.7 69 18 121/79 98 99.7 05/31/17 16:00 97.6 70 19 118/64 98 97.6 Intake and Output 05/31/17 06/01/17 19:00 07:00 Intake Total 360 ml 360 ml Output Total 450 ml 1500 ml Balance -90 ml -1140 ml Intake Oral 360 ml 360 ml Output Urine Total 450 ml 1500 ml # Bowel Movements 1 Laboratory Tests Test 06/01/17 05:45 White Blood Count 3.4 K/UL (4.8-10.8) L Red Blood Count 3.65 M/UL (4.20-5.40) L Hemoglobin 11.1 G/DL (12.0-16.0) L Hematocrit 32.7 % (37.0-47.0) L Mean Corpuscular Volume 90 FL (80-99) Mean Corpuscular Hemoglobin 30.5 PG (27.0-31.0) Mean Corpuscular Hemoglobin Concent 34.0 G/DL (32.0-36.0) Red Cell Distribution Width 14.2 % (11.6-14.8) Platelet Count 157 K/UL (150-450) Mean Platelet Volume 9.0 FL (6.5-10.1) Neutrophils (%) (Auto) % (45.0-75.0) Lymphocytes (%) (Auto) % (20.0-45.0) Monocytes (%) (Auto) % (1.0-10.0) Eosinophils (%) (Auto) % (0.0-3.0) Basophils (%) (Auto) % (0.0-2.0) Differential Total Cells Counted 100 Neutrophils % (Manual) 49 % (45-75) Lymphocytes % (Manual) 42 % (20-45) Monocytes % (Manual) 7 % (1-10) Eosinophils % (Manual) 2 % (0-3) Basophils % (Manual) 0 % (0-2) Band Neutrophils 0 % (0-8) Platelet Estimate Adequate Platelet Morphology Normal Anisocytosis 1+ Sodium Level 142 MMOL/L (136-145) Potassium Level 4.1 MMOL/L (3.5-5.1) Chloride Level 107 MMOL/L (98-107) Carbon Dioxide Level 25 MMOL/L (21-32) Anion Gap 10 mmol/L (5-15) Blood Urea Nitrogen 14 mg/dL (7-18) Creatinine 1.0 MG/DL (0.55-1.30) Estimat Glomerular Filtration Rate mL/min (>60) Glucose Level 77 MG/DL (74-106) Calcium Level 8.9 MG/DL (8.5-10.1) Total Bilirubin 0.3 MG/DL (0.2-1.0) Aspartate Amino Transf (AST/SGOT) 27 U/L (15-37) Alanine Aminotransferase (ALT/SGPT) 19 U/L (12-78) Alkaline Phosphatase 59 U/L (46-116) Total Protein 6.5 G/DL (6.4-8.2) Albumin 2.7 G/DL (3.4-5.0) L Globulin 3.8 g/dL Albumin/Globulin Ratio 0.7 (1.0-2.7) L Height (Feet): 5 Height (Inches): 2.00 Weight (Pounds): 110 Medications Current Medications Medications (Trade) Dose Ordered Sig/Nenita Route PRN Reason Start Time Stop Time Status Last Admin Dose Admin Acetaminophen (Tylenol) 650 mg QIDPRN PRN ORAL Mild Pain/Temp > 100.5 05/31/17 09:15 06/30/17 09:14 06/01/17 09:12 Amlodipine Besylate (Norvasc) 5 mg DAILY ORAL 05/31/17 09:00 06/30/17 08:59 05/31/17 08:19 Aspirin (Ecotrin) 81 mg DAILY ORAL 05/31/17 09:00 06/30/17 08:59 06/01/17 09:11 Atorvastatin Calcium (Lipitor) 10 mg QHS ORAL 05/30/17 21:00 06/29/17 20:59 05/31/17 21:55 Docusate Sodium (Colace) 100 mg BID ORAL 05/30/17 18:00 06/29/17 17:59 06/01/17 09:12 Donepezil HCl (Aricept) 10 mg DAILY ORAL 05/31/17 09:00 06/30/17 08:59 06/01/17 09:11 Fish Oil (Fish Oil) 1,000 mg DAILY ORAL 05/31/17 09:00 06/30/17 08:59 06/01/17 09:12 Gabapentin (Neurontin) 100 mg BID ORAL 05/30/17 18:00 06/29/17 17:59 06/01/17 09:12 Irbesartan (Avapro) 150 mg DAILY ORAL 05/31/17 09:00 06/30/17 08:59 05/31/17 08:18 Megestrol Acetate (Megace) 40 mg TWICE A DAY ORAL 05/30/17 18:00 06/29/17 17:59 06/01/17 09:12 Menthol/Methyl Salicylate (Bengay) 1 applic FOUR TIMES A DAY TOPIC 05/31/17 21:00 06/30/17 20:59 Oxcarbazepine (Trileptal) 150 mg DAILY ORAL 05/31/17 09:00 06/30/17 08:59 06/01/17 09:11 Piperacillin Sod/ Tazobactam Sod 3.375 gm/Dextrose 110 ml @ 27.5 mls/hr EVERY 8 HOURS IVPB 05/31/17 14:00 06/05/17 13:59 06/01/17 06:06 Risperidone (RisperDAL) 0.5 mg Q12H PRN ORAL Agitation 05/30/17 17:00 06/29/17 16:59 Thiamine HCl (Vitamin B1) 100 mg DAILY ORAL 05/31/17 09:00 06/30/17 08:59 06/01/17 09:12 Vitamin D (Vitamin D) 1,000 intlu DAILY ORAL 05/31/17 09:00 06/30/17 08:59 06/01/17 09:11 Assessment/Plan Status: stable Assessment/Plan Encephalopathy Dementia with behavioral disturbance -cont risperdal prn -cont Aricept. -the pt was given Wayne Ornelas M.D. Jun 01, 2017 12:50
--- NOTE | 2017-06-01 12:53 | General Progress Note ---
Assessment/Plan Status: stable, progressing Assessment/Plan Encephalopathy Dementia with behavioral disturbance -cont risperdal prn -cont Aricept. -the pt was given ro Subjective Date patient seen: Jun 01, 2017 Neurologic/Psychiatric: Reports: anxiety, depressed, emotional problems Allergies: Coded Allergies: CODEINE (Verified Allergy, Mild, Itching, 01/31/14) Subjective the pt is less congused today and more engaged. Objective Last 24 Hour Vital Signs Date Time Temp Pulse Resp B/P (MAP) Pulse Ox O2 Delivery O2 Flow Rate FiO2 06/01/17 11:47 98.2 72 20 101/62 98 98.2 06/01/17 10:11 97.7 06/01/17 09:12 97.7 06/01/17 09:00 98/57 06/01/17 09:00 74 98/57 06/01/17 08:20 97.7 74 20 98/57 98 97.7 05/31/17 21:00 99.7 69 18 121/79 98 99.7 05/31/17 16:00 97.6 70 19 118/64 98 97.6 Intake and Output 05/31/17 06/01/17 19:00 07:00 Intake Total 360 ml 360 ml Output Total 450 ml 1500 ml Balance -90 ml -1140 ml Intake Oral 360 ml 360 ml Output Urine Total 450 ml 1500 ml # Bowel Movements 1 Laboratory Tests 06/01/17 05:45: White Blood Count 3.4L, Red Blood Count 3.65L, Hemoglobin 11.1L, Hematocrit 32.7L, Mean Corpuscular Volume 90, Mean Corpuscular Hemoglobin 30.5, Mean Corpuscular Hemoglobin Concent 34.0, Red Cell Distribution Width 14.2, Platelet Count 157, Mean Platelet Volume 9.0, Neutrophils (%) (Auto) , Lymphocytes (%) ( Auto) , Monocytes (%) (Auto) , Eosinophils (%) (Auto) , Basophils (%) (Auto) , Differential Total Cells Counted 100, Neutrophils % (Manual) 49, Lymphocytes % ( Manual) 42, Monocytes % (Manual) 7, Eosinophils % (Manual) 2, Basophils % ( Manual) 0, Band Neutrophils 0, Platelet Estimate Adequate, Platelet Morphology Normal, Anisocytosis 1+, Sodium Level 142, Potassium Level 4.1, Chloride Level 107, Carbon Dioxide Level 25, Anion Gap 10, Blood Urea Nitrogen 14, Creatinine 1.0, Estimat Glomerular Filtration Rate , Glucose Level 77, Calcium Level 8.9, Total Bilirubin 0.3, Aspartate Amino Transf (AST/SGOT) 27, Alanine Aminotransferase (ALT/SGPT) 19, Alkaline Phosphatase 59, Total Protein 6.5, Albumin 2.7L, Globulin 3.8, Albumin/Globulin Ratio 0.7L Height (Feet): 5 Height (Inches): 2.00 Weight (Pounds): 110 General Appearance: no apparent distress, alert Neurologic: oriented x 3, responsive, depressed affect Wayne Conti M.D. Jun 01, 2017 12:53
--- NOTE | 2017-06-01 13:02 | Infectious Diseases Prog Note ---
Assessment/Plan Assessment/Plan A; E. coli UTI bladder prolapse Cirrhosis Osteoporosis compression fracture dementia P; Change Zosyn to Rocephin Subjective ROS Limited/Unobtainable: No Cardiovascular: Reports: no symptoms Gastrointestinal/Abdominal: Reports: no symptoms Musculoskeletal: Reports: pain, other - on kness, thigh Allergies: Coded Allergies: CODEINE (Verified Allergy, Mild, Itching, 01/31/14) Objective Vital Signs Last 24 Hour Vital Signs Date Time Temp Pulse Resp B/P (MAP) Pulse Ox O2 Delivery O2 Flow Rate FiO2 06/01/17 11:47 98.2 72 20 101/62 98 98.2 06/01/17 10:11 97.7 06/01/17 09:12 97.7 06/01/17 09:00 98/57 06/01/17 09:00 74 98/57 06/01/17 08:20 97.7 74 20 98/57 98 97.7 05/31/17 21:00 99.7 69 18 121/79 98 99.7 05/31/17 16:00 97.6 70 19 118/64 98 97.6 Height (Feet): 5 Height (Inches): 2.00 Weight (Pounds): 110 HEENT: mucous membranes moist Respiratory/Chest: lungs clear Cardiovascular: normal rate Abdomen: soft, non tender Genitourinary: other - Valenzuela catheter, hematuria decreased Extremities: no edema Neurologic/Psychiatric: alert, responsive Microbiology Date/Time Source Procedure Growth Status 05/30/17 10:39 Urine,Clean Catch Urine Culture - Final Escherichia Coli Mixed Gram Positive Organism Complete Laboratory Tests Test 06/01/17 05:45 White Blood Count 3.4 K/UL (4.8-10.8) L Red Blood Count 3.65 M/UL (4.20-5.40) L Hemoglobin 11.1 G/DL (12.0-16.0) L Hematocrit 32.7 % (37.0-47.0) L Mean Corpuscular Volume 90 FL (80-99) Mean Corpuscular Hemoglobin 30.5 PG (27.0-31.0) Mean Corpuscular Hemoglobin Concent 34.0 G/DL (32.0-36.0) Red Cell Distribution Width 14.2 % (11.6-14.8) Platelet Count 157 K/UL (150-450) Mean Platelet Volume 9.0 FL (6.5-10.1) Neutrophils (%) (Auto) % (45.0-75.0) Lymphocytes (%) (Auto) % (20.0-45.0) Monocytes (%) (Auto) % (1.0-10.0) Eosinophils (%) (Auto) % (0.0-3.0) Basophils (%) (Auto) % (0.0-2.0) Differential Total Cells Counted 100 Neutrophils % (Manual) 49 % (45-75) Lymphocytes % (Manual) 42 % (20-45) Monocytes % (Manual) 7 % (1-10) Eosinophils % (Manual) 2 % (0-3) Basophils % (Manual) 0 % (0-2) Band Neutrophils 0 % (0-8) Platelet Estimate Adequate Platelet Morphology Normal Anisocytosis 1+ Sodium Level 142 MMOL/L (136-145) Potassium Level 4.1 MMOL/L (3.5-5.1) Chloride Level 107 MMOL/L (98-107) Carbon Dioxide Level 25 MMOL/L (21-32) Anion Gap 10 mmol/L (5-15) Blood Urea Nitrogen 14 mg/dL (7-18) Creatinine 1.0 MG/DL (0.55-1.30) Estimat Glomerular Filtration Rate mL/min (>60) Glucose Level 77 MG/DL (74-106) Calcium Level 8.9 MG/DL (8.5-10.1) Total Bilirubin 0.3 MG/DL (0.2-1.0) Aspartate Amino Transf (AST/SGOT) 27 U/L (15-37) Alanine Aminotransferase (ALT/SGPT) 19 U/L (12-78) Alkaline Phosphatase 59 U/L (46-116) Total Protein 6.5 G/DL (6.4-8.2) Albumin 2.7 G/DL (3.4-5.0) L Globulin 3.8 g/dL Albumin/Globulin Ratio 0.7 (1.0-2.7) L Current Medications Medications (Trade) Dose Ordered Sig/Nenita Route PRN Reason Start Time Stop Time Status Last Admin Dose Admin Acetaminophen (Tylenol) 650 mg QIDPRN PRN ORAL Mild Pain/Temp > 100.5 05/31/17 09:15 06/30/17 09:14 06/01/17 09:12 Amlodipine Besylate (Norvasc) 5 mg DAILY ORAL 05/31/17 09:00 06/30/17 08:59 05/31/17 08:19 Aspirin (Ecotrin) 81 mg DAILY ORAL 05/31/17 09:00 06/30/17 08:59 06/01/17 09:11 Atorvastatin Calcium (Lipitor) 10 mg QHS ORAL 05/30/17 21:00 06/29/17 20:59 05/31/17 21:55 Docusate Sodium (Colace) 100 mg BID ORAL 05/30/17 18:00 06/29/17 17:59 06/01/17 09:12 Donepezil HCl (Aricept) 10 mg DAILY ORAL 05/31/17 09:00 06/30/17 08:59 06/01/17 09:11 Fish Oil (Fish Oil) 1,000 mg DAILY ORAL 05/31/17 09:00 06/30/17 08:59 06/01/17 09:12 Gabapentin (Neurontin) 100 mg BID ORAL 05/30/17 18:00 06/29/17 17:59 06/01/17 09:12 Irbesartan (Avapro) 150 mg DAILY ORAL 05/31/17 09:00 06/30/17 08:59 05/31/17 08:18 Megestrol Acetate (Megace) 40 mg TWICE A DAY ORAL 05/30/17 18:00 06/29/17 17:59 06/01/17 09:12 Menthol/Methyl Salicylate (Bengay) 1 applic FOUR TIMES A DAY TOPIC 05/31/17 21:00 06/30/17 20:59 Oxcarbazepine (Trileptal) 150 mg DAILY ORAL 05/31/17 09:00 06/30/17 08:59 06/01/17 09:11 Piperacillin Sod/ Tazobactam Sod 3.375 gm/Dextrose 110 ml @ 27.5 mls/hr EVERY 8 HOURS IVPB 05/31/17 14:00 06/05/17 13:59 06/01/17 06:06 Risperidone (RisperDAL) 0.5 mg Q12H PRN ORAL Agitation 05/30/17 17:00 06/29/17 16:59 Thiamine HCl (Vitamin B1) 100 mg DAILY ORAL 05/31/17 09:00 06/30/17 08:59 06/01/17 09:12 Vitamin D (Vitamin D) 1,000 intlu DAILY ORAL 05/31/17 09:00 06/30/17 08:59 06/01/17 09:11 EMMA MARIO Jun 01, 2017 13:02
--- NOTE | 2017-06-01 13:55 | Nephrology Progress Note ---
Assessment/Plan Problem List: (1) Hematuria (2) Urinary tract infection (3) HTN (hypertension), benign Assessment UTI Bladder Prolapse Psych Ds Plan per ID and Uro Subjective ROS Limited/Unobtainable: No Constitutional: Reports: malaise Objective Objective Last 24 Hour Vital Signs Date Time Temp Pulse Resp B/P (MAP) Pulse Ox O2 Delivery O2 Flow Rate FiO2 06/01/17 11:47 98.2 72 20 101/62 98 98.2 06/01/17 10:11 97.7 06/01/17 09:12 97.7 06/01/17 09:00 98/57 06/01/17 09:00 74 98/57 06/01/17 08:20 97.7 74 20 98/57 98 97.7 05/31/17 21:00 99.7 69 18 121/79 98 99.7 05/31/17 16:00 97.6 70 19 118/64 98 97.6 Intake and Output 05/31/17 06/01/17 19:00 07:00 Intake Total 360 ml 360 ml Output Total 450 ml 1500 ml Balance -90 ml -1140 ml Intake Oral 360 ml 360 ml Output Urine Total 450 ml 1500 ml # Bowel Movements 1 Laboratory Tests 06/01/17 05:45: White Blood Count 3.4L, Red Blood Count 3.65L, Hemoglobin 11.1L, Hematocrit 32.7L, Mean Corpuscular Volume 90, Mean Corpuscular Hemoglobin 30.5, Mean Corpuscular Hemoglobin Concent 34.0, Red Cell Distribution Width 14.2, Platelet Count 157, Mean Platelet Volume 9.0, Neutrophils (%) (Auto) , Lymphocytes (%) ( Auto) , Monocytes (%) (Auto) , Eosinophils (%) (Auto) , Basophils (%) (Auto) , Differential Total Cells Counted 100, Neutrophils % (Manual) 49, Lymphocytes % ( Manual) 42, Monocytes % (Manual) 7, Eosinophils % (Manual) 2, Basophils % ( Manual) 0, Band Neutrophils 0, Platelet Estimate Adequate, Platelet Morphology Normal, Anisocytosis 1+, Sodium Level 142, Potassium Level 4.1, Chloride Level 107, Carbon Dioxide Level 25, Anion Gap 10, Blood Urea Nitrogen 14, Creatinine 1.0, Estimat Glomerular Filtration Rate , Glucose Level 77, Calcium Level 8.9, Total Bilirubin 0.3, Aspartate Amino Transf (AST/SGOT) 27, Alanine Aminotransferase (ALT/SGPT) 19, Alkaline Phosphatase 59, Total Protein 6.5, Albumin 2.7L, Globulin 3.8, Albumin/Globulin Ratio 0.7L Height (Feet): 5 Height (Inches): 2.00 Weight (Pounds): 110 General Appearance: no apparent distress Cardiovascular: normal rate Respiratory/Chest: lungs clear Abdomen: soft RODRIGO DEJESUS Jun 01, 2017 13:55
[2017-06-01] MEDS: cefTRIAXone 1 GM in D5W 55 ML IVPB SCH (14:59)
[2017-06-01 15:57] VITALS: BP 98/55
[2017-06-01 21:00] VITALS: BP 158/85
--- NOTE | 2017-06-01 21:23 | General Progress Note ---
Assessment/Plan Problem List: (1) Urinary tract infection ICD Codes: N39.0 - Urinary tract infection, site not specified SNOMED: 52836941 (2) Hematuria ICD Codes: R31.9 - Hematuria, unspecified SNOMED: 73218549 (3) HTN (hypertension), benign ICD Codes: I10 - HTN (hypertension), benign SNOMED: 51540989 Status: progressing Assessment/Plan uti is improving abx per id afebrile vitals stable atonic bladder self caths prn Subjective ROS Limited/Unobtainable: Yes Allergies: Coded Allergies: CODEINE (Verified Allergy, Mild, Itching, 01/31/14) Objective Last 24 Hour Vital Signs Date Time Temp Pulse Resp B/P (MAP) Pulse Ox O2 Delivery O2 Flow Rate FiO2 06/01/17 17:21 98.1 06/01/17 16:22 98.1 06/01/17 15:57 98.1 82 20 98/55 99 98.1 06/01/17 11:47 98.2 72 20 101/62 98 98.2 06/01/17 09:12 97.7 06/01/17 09:00 98/57 06/01/17 09:00 74 98/57 06/01/17 08:20 97.7 74 20 98/57 98 97.7 Intake and Output 05/31/17 06/01/17 19:00 07:00 Intake Total 360 ml 360 ml Output Total 450 ml 1500 ml Balance -90 ml -1140 ml Intake Oral 360 ml 360 ml Output Urine Total 450 ml 1500 ml # Bowel Movements 1 Laboratory Tests 06/01/17 05:45: White Blood Count 3.4L, Red Blood Count 3.65L, Hemoglobin 11.1L, Hematocrit 32.7L, Mean Corpuscular Volume 90, Mean Corpuscular Hemoglobin 30.5, Mean Corpuscular Hemoglobin Concent 34.0, Red Cell Distribution Width 14.2, Platelet Count 157, Mean Platelet Volume 9.0, Neutrophils (%) (Auto) , Lymphocytes (%) ( Auto) , Monocytes (%) (Auto) , Eosinophils (%) (Auto) , Basophils (%) (Auto) , Differential Total Cells Counted 100, Neutrophils % (Manual) 49, Lymphocytes % ( Manual) 42, Monocytes % (Manual) 7, Eosinophils % (Manual) 2, Basophils % ( Manual) 0, Band Neutrophils 0, Platelet Estimate Adequate, Platelet Morphology Normal, Anisocytosis 1+, Sodium Level 142, Potassium Level 4.1, Chloride Level 107, Carbon Dioxide Level 25, Anion Gap 10, Blood Urea Nitrogen 14, Creatinine 1.0, Estimat Glomerular Filtration Rate , Glucose Level 77, Calcium Level 8.9, Total Bilirubin 0.3, Aspartate Amino Transf (AST/SGOT) 27, Alanine Aminotransferase (ALT/SGPT) 19, Alkaline Phosphatase 59, Total Protein 6.5, Albumin 2.7L, Globulin 3.8, Albumin/Globulin Ratio 0.7L Height (Feet): 5 Height (Inches): 2.00 Weight (Pounds): 110 Yinka Fernandez MD Jun 01, 2017 21:23
[2017-06-02 00:29] VITALS: BP 105/56
[2017-06-02 04:29] VITALS: BP 116/63
[2017-06-02 08:00] VITALS: BP 100/57
[2017-06-02 08:13] LABS: HEMATOCRIT 35.1 % (37.0-47.0); HEMOGLOBIN 11.6 G/DL (12.0-16.0); MEAN CORPUSCULAR VOLUME 91 FL (80-99); PLATELET COUNT 170 K/UL (150-450); RED BLOOD COUNT 3.86 M/UL (4.20-5.40); RED CELL DISTRIBUTION WIDTH 14.7 % (11.6-14.8); WHITE BLOOD COUNT 3.4 K/UL (4.8-10.8)
[2017-06-02] MEDS: Aspirin EC 81mg tab ORAL SCH (08:26)
[2017-06-02] MEDS: Donepezil 10mg tab ORAL SCH (08:26)
[2017-06-02] MEDS: Thiamine 100mg tab ORAL SCH (08:26)
[2017-06-02] MEDS: Docusate 100mg cap ORAL SCH ×2 (08:26→17:11)
[2017-06-02] MEDS: OXcarbazepine 150mg tab ORAL SCH (08:26)
[2017-06-02 08:27] LABS: ALANINE AMINOTRANSFERASE 19 U/L (12-78); ALBUMIN 2.9 G/DL (3.4-5.0); ALBUMIN/GLOBULIN RATIO 0.7 (1.0-2.7); ALKALINE PHOSPHATASE 81 U/L (46-116); ANION GAP 6 mmol/L (5-15); ASPARTATE AMINO TRANSFERASE 27 U/L (15-37); BILIRUBIN,TOTAL 0.2 MG/DL (0.2-1.0); BLOOD UREA NITROGEN 20 mg/dL (7-18); CARBON DIOXIDE 29 MMOL/L (21-32); CHLORIDE 107 MMOL/L (98-107); POTASSIUM 3.6 MMOL/L (3.5-5.1); SODIUM 142 MMOL/L (136-145)
[2017-06-02] MEDS: Vitamin D 1000 IU Tab ORAL SCH (08:27)
[2017-06-02] MEDS: Irbesartan 150mg tablet ORAL SCH (08:28)
--- NOTE | 2017-06-02 08:57 | General Progress Note ---
Assessment/Plan Assessment/Plan (1) Multiple Joint OA (2) Multiple Joint Pain She will be continued on Bengay and Tylenol as needed D/w Dr. Thapa he concurred. Subjective Date patient seen: Jun 02, 2017 Time patient seen: 07:30 - am Allergies: Coded Allergies: CODEINE (Verified Allergy, Mild, Itching, 01/31/14) Subjective REVIEW OF SYSTEMS: Denies rash, fever, chills, sweating, dizziness, drowsiness, blurred vision, sore throat, or change in weight. She is complaining of joint pain. SUBJECTIVE: She is in bed and reports that her pain has been stable and tolerated on the cream and Tylenol as needed. No new complaints. Objective Last 24 Hour Vital Signs Date Time Temp Pulse Resp B/P (MAP) Pulse Ox O2 Delivery O2 Flow Rate FiO2 06/02/17 08:29 70 100/59 06/02/17 08:28 100/59 06/02/17 04:30 98 Room Air 06/02/17 04:29 97.2 78 20 116/63 98 Room Air 97.2 78 06/02/17 00:42 96 Room Air 06/02/17 00:29 98.2 77 20 105/56 96 Room Air 98.2 77 06/01/17 21:00 96 Room Air 06/01/17 21:00 98.2 95 20 158/85 96 Room Air 98.2 95 06/01/17 17:21 98.1 06/01/17 16:22 98.1 06/01/17 15:57 98.1 82 20 98/55 99 98.1 06/01/17 11:47 98.2 72 20 101/62 98 98.2 06/01/17 09:12 97.7 06/01/17 09:00 98/57 06/01/17 09:00 74 98/57 Intake and Output 06/01/17 06/02/17 19:00 07:00 Intake Total 720 ml Output Total 400 ml Balance 320 ml Intake Oral 720 ml Output Urine Total 400 ml Laboratory Tests 06/02/17 06:10: White Blood Count 3.4L, Red Blood Count 3.86L, Hemoglobin 11.6L, Hematocrit 35.1L, Mean Corpuscular Volume 91, Mean Corpuscular Hemoglobin 30.0, Mean Corpuscular Hemoglobin Concent 33.0, Red Cell Distribution Width 14.7, Platelet Count 170, Mean Platelet Volume 8.2, Neutrophils (%) (Auto) , Lymphocytes (%) ( Auto) , Monocytes (%) (Auto) , Eosinophils (%) (Auto) , Basophils (%) (Auto) , Neutrophils % (Manual) [Pending], Lymphocytes % (Manual) [Pending], Platelet Estimate [Pending], Platelet Morphology [Pending], Sodium Level 142, Potassium Level 3.6, Chloride Level 107, Carbon Dioxide Level 29, Anion Gap 6, Blood Urea Nitrogen 20H, Creatinine 1.0, Estimat Glomerular Filtration Rate , Glucose Level 59L, Calcium Level 9.0, Total Bilirubin 0.2, Aspartate Amino Transf (AST/ SGOT) 27, Alanine Aminotransferase (ALT/SGPT) 19, Alkaline Phosphatase 81, Total Protein 7.1, Albumin 2.9L, Globulin 4.2, Albumin/Globulin Ratio 0.7L Height (Feet): 5 Height (Inches): 2.00 Weight (Pounds): 110 Objective GENERAL: Alert, awake, and oriented. HEENT: PERRLA. NECK: Range of motion is full in all directions. No tenderness to paracervical muscles. No adenopathy. LUNGS: Decreased breath sounds bilaterally. HEART: Regular. ABDOMEN: Benign. BACK: Range of motion is decreased in flexion and extension. EXTREMITIES: Upper and lower extremity range of motion is decreased due to the patient's pain and condition. No cyanosis. No clubbing. No edema. Sensory is intact. Reflexes are not obtainable. No adenopathy. SAUNDRA BENNETT Jun 02, 2017 08:57
[2017-06-02] MEDS: Analgesic Balm 15gm TOPIC SCH ×4 (09:05→20:09)
[2017-06-02 12:00] VITALS: BP 100/58
--- NOTE | 2017-06-02 13:24 | Infectious Diseases Prog Note ---
Assessment/Plan Assessment/Plan A; E. coli UTI bladder prolapse Cirrhosis Osteoporosis compression fracture dementia P; Continue Rocephin in case of discharge PO Keflex X 3 days Subjective ROS Limited/Unobtainable: No Cardiovascular: Reports: no symptoms Gastrointestinal/Abdominal: Reports: no symptoms Genitourinary: Reports: no symptoms Musculoskeletal: Reports: pain, other - in R thigh Allergies: Coded Allergies: CODEINE (Verified Allergy, Mild, Itching, 01/31/14) Objective Vital Signs Last 24 Hour Vital Signs Date Time Temp Pulse Resp B/P (MAP) Pulse Ox O2 Delivery O2 Flow Rate FiO2 06/02/17 12:00 97.7 79 20 100/58 98 Room Air 97.7 79 06/02/17 08:29 70 100/59 06/02/17 08:28 100/59 06/02/17 08:00 97.9 70 20 100/57 98 97.9 06/02/17 04:30 98 Room Air 06/02/17 04:29 97.2 78 20 116/63 98 Room Air 97.2 78 06/02/17 00:42 96 Room Air 06/02/17 00:29 98.2 77 20 105/56 96 Room Air 98.2 77 06/01/17 21:00 96 Room Air 06/01/17 21:00 98.2 95 20 158/85 96 Room Air 98.2 95 06/01/17 17:21 98.1 06/01/17 16:22 98.1 06/01/17 15:57 98.1 82 20 98/55 99 98.1 Height (Feet): 5 Height (Inches): 2.00 Weight (Pounds): 110 General Appearance: no acute distress HEENT: mucous membranes moist Respiratory/Chest: lungs clear Cardiovascular: normal rate Abdomen: soft, non tender Genitourinary: other - Valenzuela catheter, hematuria Extremities: no edema Neurologic/Psychiatric: alert, responsive Laboratory Tests Test 06/02/17 06:10 White Blood Count 3.4 K/UL (4.8-10.8) L Red Blood Count 3.86 M/UL (4.20-5.40) L Hemoglobin 11.6 G/DL (12.0-16.0) L Hematocrit 35.1 % (37.0-47.0) L Mean Corpuscular Volume 91 FL (80-99) Mean Corpuscular Hemoglobin 30.0 PG (27.0-31.0) Mean Corpuscular Hemoglobin Concent 33.0 G/DL (32.0-36.0) Red Cell Distribution Width 14.7 % (11.6-14.8) Platelet Count 170 K/UL (150-450) Mean Platelet Volume 8.2 FL (6.5-10.1) Neutrophils (%) (Auto) % (45.0-75.0) Lymphocytes (%) (Auto) % (20.0-45.0) Monocytes (%) (Auto) % (1.0-10.0) Eosinophils (%) (Auto) % (0.0-3.0) Basophils (%) (Auto) % (0.0-2.0) Differential Total Cells Counted 100 Neutrophils % (Manual) 52 % (45-75) Lymphocytes % (Manual) 43 % (20-45) Monocytes % (Manual) 2 % (1-10) Eosinophils % (Manual) 3 % (0-3) Basophils % (Manual) 0 % (0-2) Band Neutrophils 0 % (0-8) Platelet Estimate Adequate Platelet Morphology Normal Anisocytosis 1+ Sodium Level 142 MMOL/L (136-145) Potassium Level 3.6 MMOL/L (3.5-5.1) Chloride Level 107 MMOL/L (98-107) Carbon Dioxide Level 29 MMOL/L (21-32) Anion Gap 6 mmol/L (5-15) Blood Urea Nitrogen 20 mg/dL (7-18) H Creatinine 1.0 MG/DL (0.55-1.30) Estimat Glomerular Filtration Rate mL/min (>60) Glucose Level 59 MG/DL (74-106) L Calcium Level 9.0 MG/DL (8.5-10.1) Total Bilirubin 0.2 MG/DL (0.2-1.0) Aspartate Amino Transf (AST/SGOT) 27 U/L (15-37) Alanine Aminotransferase (ALT/SGPT) 19 U/L (12-78) Alkaline Phosphatase 81 U/L (46-116) Total Protein 7.1 G/DL (6.4-8.2) Albumin 2.9 G/DL (3.4-5.0) L Globulin 4.2 g/dL Albumin/Globulin Ratio 0.7 (1.0-2.7) L Current Medications Medications (Trade) Dose Ordered Sig/Nenita Route PRN Reason Start Time Stop Time Status Last Admin Dose Admin Acetaminophen (Tylenol) 650 mg QIDPRN PRN ORAL Mild Pain/Temp > 100.5 05/31/17 09:15 06/30/17 09:14 06/01/17 16:22 Amlodipine Besylate (Norvasc) 5 mg DAILY ORAL 05/31/17 09:00 06/30/17 08:59 05/31/17 08:19 Aspirin (Ecotrin) 81 mg DAILY ORAL 05/31/17 09:00 06/30/17 08:59 06/02/17 08:26 Atorvastatin Calcium (Lipitor) 10 mg QHS ORAL 05/30/17 21:00 06/29/17 20:59 06/01/17 21:48 Ceftriaxone Sodium 1 gm/ Dextrose 55 ml @ 110 mls/hr Q24H IVPB 06/01/17 14:30 06/08/17 14:29 06/01/17 14:59 Docusate Sodium (Colace) 100 mg BID ORAL 05/30/17 18:00 06/29/17 17:59 06/02/17 08:26 Donepezil HCl (Aricept) 10 mg DAILY ORAL 05/31/17 09:00 06/30/17 08:59 06/02/17 08:26 Fish Oil (Fish Oil) 1,000 mg DAILY ORAL 05/31/17 09:00 06/30/17 08:59 06/02/17 08:26 Gabapentin (Neurontin) 100 mg BID ORAL 05/30/17 18:00 06/29/17 17:59 06/02/17 08:26 Irbesartan (Avapro) 150 mg DAILY ORAL 05/31/17 09:00 06/30/17 08:59 05/31/17 08:18 Megestrol Acetate (Megace) 40 mg TWICE A DAY ORAL 05/30/17 18:00 06/29/17 17:59 06/02/17 08:26 Menthol/Methyl Salicylate (Bengay) 1 applic FOUR TIMES A DAY TOPIC 06/02/17 09:00 07/02/17 08:59 06/02/17 09:05 Oxcarbazepine (Trileptal) 150 mg DAILY ORAL 05/31/17 09:00 06/30/17 08:59 06/02/17 08:26 Risperidone (RisperDAL) 0.5 mg Q12H PRN ORAL Agitation 05/30/17 17:00 06/29/17 16:59 Thiamine HCl (Vitamin B1) 100 mg DAILY ORAL 05/31/17 09:00 06/30/17 08:59 06/02/17 08:26 Vitamin D (Vitamin D) 1,000 intlu DAILY ORAL 05/31/17 09:00 06/30/17 08:59 06/02/17 08:27 EMMA MARIO Jun 02, 2017 13:24
[2017-06-02] MEDS: cefTRIAXone 1 GM in D5W 55 ML IVPB SCH (13:50)
--- NOTE | 2017-06-02 15:18 | General Progress Note ---
Assessment/Plan Status: stable, progressing Assessment/Plan Encephalopathy Dementia with behavioral disturbance -cont Risperdal prn -cont Aricept. -the pt was given ro Subjective Date patient seen: Jun 02, 2017 Neurologic/Psychiatric: Reports: anxiety Allergies: Coded Allergies: CODEINE (Verified Allergy, Mild, Itching, 01/31/14) Subjective the pt is doing much better. No anxiety. Objective Last 24 Hour Vital Signs Date Time Temp Pulse Resp B/P (MAP) Pulse Ox O2 Delivery O2 Flow Rate FiO2 06/02/17 12:00 97.7 79 20 100/58 98 Room Air 97.7 79 06/02/17 08:29 70 100/59 06/02/17 08:28 100/59 06/02/17 08:00 97.9 70 20 100/57 98 97.9 06/02/17 04:30 98 Room Air 06/02/17 04:29 97.2 78 20 116/63 98 Room Air 97.2 78 06/02/17 00:42 96 Room Air 06/02/17 00:29 98.2 77 20 105/56 96 Room Air 98.2 77 06/01/17 21:00 96 Room Air 06/01/17 21:00 98.2 95 20 158/85 96 Room Air 98.2 95 06/01/17 17:21 98.1 06/01/17 16:22 98.1 06/01/17 15:57 98.1 82 20 98/55 99 98.1 Intake and Output 06/01/17 06/02/17 19:00 07:00 Intake Total 720 ml Output Total 400 ml Balance 320 ml Intake Oral 720 ml Output Urine Total 400 ml Laboratory Tests 06/02/17 06:10: White Blood Count 3.4L, Red Blood Count 3.86L, Hemoglobin 11.6L, Hematocrit 35.1L, Mean Corpuscular Volume 91, Mean Corpuscular Hemoglobin 30.0, Mean Corpuscular Hemoglobin Concent 33.0, Red Cell Distribution Width 14.7, Platelet Count 170, Mean Platelet Volume 8.2, Neutrophils (%) (Auto) , Lymphocytes (%) ( Auto) , Monocytes (%) (Auto) , Eosinophils (%) (Auto) , Basophils (%) (Auto) , Differential Total Cells Counted 100, Neutrophils % (Manual) 52, Lymphocytes % ( Manual) 43, Monocytes % (Manual) 2, Eosinophils % (Manual) 3, Basophils % ( Manual) 0, Band Neutrophils 0, Platelet Estimate Adequate, Platelet Morphology Normal, Anisocytosis 1+, Sodium Level 142, Potassium Level 3.6, Chloride Level 107, Carbon Dioxide Level 29, Anion Gap 6, Blood Urea Nitrogen 20H, Creatinine 1.0, Estimat Glomerular Filtration Rate , Glucose Level 59L, Calcium Level 9.0, Total Bilirubin 0.2, Aspartate Amino Transf (AST/SGOT) 27, Alanine Aminotransferase (ALT/SGPT) 19, Alkaline Phosphatase 81, Total Protein 7.1, Albumin 2.9L, Globulin 4.2, Albumin/Globulin Ratio 0.7L Height (Feet): 5 Height (Inches): 2.00 Weight (Pounds): 110 General Appearance: no apparent distress, alert Neurologic: oriented x 3, responsive, depressed affect Wayne Conti M.D. Jun 02, 2017 15:18
--- NOTE | 2017-06-02 15:29 | Nephrology Progress Note ---
Assessment/Plan Problem List: (1) Hematuria (2) Urinary tract infection (3) HTN (hypertension), benign Assessment UTI Bladder Prolapse Psych Ds Plan per ID and Uro adjust BP meds Subjective ROS Limited/Unobtainable: No Objective Objective Last 24 Hour Vital Signs Date Time Temp Pulse Resp B/P (MAP) Pulse Ox O2 Delivery O2 Flow Rate FiO2 06/02/17 12:00 97.7 79 20 100/58 98 Room Air 97.7 79 06/02/17 08:29 70 100/59 06/02/17 08:28 100/59 06/02/17 08:00 97.9 70 20 100/57 98 97.9 06/02/17 04:30 98 Room Air 06/02/17 04:29 97.2 78 20 116/63 98 Room Air 97.2 78 06/02/17 00:42 96 Room Air 06/02/17 00:29 98.2 77 20 105/56 96 Room Air 98.2 77 06/01/17 21:00 96 Room Air 06/01/17 21:00 98.2 95 20 158/85 96 Room Air 98.2 95 06/01/17 17:21 98.1 06/01/17 16:22 98.1 06/01/17 15:57 98.1 82 20 98/55 99 98.1 Intake and Output 06/01/17 06/02/17 19:00 07:00 Intake Total 720 ml Output Total 400 ml Balance 320 ml Intake Oral 720 ml Output Urine Total 400 ml Laboratory Tests 06/02/17 06:10: White Blood Count 3.4L, Red Blood Count 3.86L, Hemoglobin 11.6L, Hematocrit 35.1L, Mean Corpuscular Volume 91, Mean Corpuscular Hemoglobin 30.0, Mean Corpuscular Hemoglobin Concent 33.0, Red Cell Distribution Width 14.7, Platelet Count 170, Mean Platelet Volume 8.2, Neutrophils (%) (Auto) , Lymphocytes (%) ( Auto) , Monocytes (%) (Auto) , Eosinophils (%) (Auto) , Basophils (%) (Auto) , Differential Total Cells Counted 100, Neutrophils % (Manual) 52, Lymphocytes % ( Manual) 43, Monocytes % (Manual) 2, Eosinophils % (Manual) 3, Basophils % ( Manual) 0, Band Neutrophils 0, Platelet Estimate Adequate, Platelet Morphology Normal, Anisocytosis 1+, Sodium Level 142, Potassium Level 3.6, Chloride Level 107, Carbon Dioxide Level 29, Anion Gap 6, Blood Urea Nitrogen 20H, Creatinine 1.0, Estimat Glomerular Filtration Rate , Glucose Level 59L, Calcium Level 9.0, Total Bilirubin 0.2, Aspartate Amino Transf (AST/SGOT) 27, Alanine Aminotransferase (ALT/SGPT) 19, Alkaline Phosphatase 81, Total Protein 7.1, Albumin 2.9L, Globulin 4.2, Albumin/Globulin Ratio 0.7L Height (Feet): 5 Height (Inches): 2.00 Weight (Pounds): 110 General Appearance: no apparent distress Objective no change RODRIGO DEJESUS Jun 02, 2017 15:29
[2017-06-02 16:00] VITALS: BP 102/55
[2017-06-02 20:04] VITALS: BP 107/62
--- NOTE | 2017-06-02 20:43 | General Progress Note ---
Assessment/Plan Problem List: (1) Urinary tract infection ICD Codes: N39.0 - Urinary tract infection, site not specified SNOMED: 68551710 (2) Hematuria ICD Codes: R31.9 - Hematuria, unspecified SNOMED: 84862854 (3) HTN (hypertension), benign ICD Codes: I10 - HTN (hypertension), benign SNOMED: 34249382 Status: progressing Assessment/Plan uti is improving afebrile hematurea improving atonic bladder Subjective ROS Limited/Unobtainable: Yes Allergies: Coded Allergies: CODEINE (Verified Allergy, Mild, Itching, 01/31/14) Objective Last 24 Hour Vital Signs Date Time Temp Pulse Resp B/P (MAP) Pulse Ox O2 Delivery O2 Flow Rate FiO2 06/02/17 20:04 99.0 89 20 107/62 97 Room Air 99.0 84 06/02/17 16:00 97.7 73 19 102/55 97 97.7 06/02/17 12:00 97.7 79 20 100/58 98 Room Air 97.7 79 06/02/17 08:29 70 100/59 06/02/17 08:28 100/59 06/02/17 08:00 97.9 70 20 100/57 98 97.9 06/02/17 04:30 98 Room Air 06/02/17 04:29 97.2 78 20 116/63 98 Room Air 97.2 78 06/02/17 00:42 96 Room Air 06/02/17 00:29 98.2 77 20 105/56 96 Room Air 98.2 77 06/01/17 21:00 96 Room Air 06/01/17 21:00 98.2 95 20 158/85 96 Room Air 98.2 95 Intake and Output 06/01/17 06/02/17 19:00 07:00 Intake Total 720 ml Output Total 400 ml Balance 320 ml Intake Oral 720 ml Output Urine Total 400 ml Laboratory Tests 06/02/17 06:10: White Blood Count 3.4L, Red Blood Count 3.86L, Hemoglobin 11.6L, Hematocrit 35.1L, Mean Corpuscular Volume 91, Mean Corpuscular Hemoglobin 30.0, Mean Corpuscular Hemoglobin Concent 33.0, Red Cell Distribution Width 14.7, Platelet Count 170, Mean Platelet Volume 8.2, Neutrophils (%) (Auto) , Lymphocytes (%) ( Auto) , Monocytes (%) (Auto) , Eosinophils (%) (Auto) , Basophils (%) (Auto) , Differential Total Cells Counted 100, Neutrophils % (Manual) 52, Lymphocytes % ( Manual) 43, Monocytes % (Manual) 2, Eosinophils % (Manual) 3, Basophils % ( Manual) 0, Band Neutrophils 0, Platelet Estimate Adequate, Platelet Morphology Normal, Anisocytosis 1+, Sodium Level 142, Potassium Level 3.6, Chloride Level 107, Carbon Dioxide Level 29, Anion Gap 6, Blood Urea Nitrogen 20H, Creatinine 1.0, Estimat Glomerular Filtration Rate , Glucose Level 59L, Calcium Level 9.0, Total Bilirubin 0.2, Aspartate Amino Transf (AST/SGOT) 27, Alanine Aminotransferase (ALT/SGPT) 19, Alkaline Phosphatase 81, Total Protein 7.1, Albumin 2.9L, Globulin 4.2, Albumin/Globulin Ratio 0.7L Height (Feet): 5 Height (Inches): 2.00 Weight (Pounds): 110 Yinka Fernandez MD Jun 02, 2017 20:43
[2017-06-03] VITALS: BP 110/60
[2017-06-03 04:00] VITALS: BP 100/55
[2017-06-03 07:37] LABS: BASOPHILS % (AUTO) 1.6 % (0.0-2.0); HEMATOCRIT 31.9 % (37.0-47.0); HEMOGLOBIN 10.7 G/DL (12.0-16.0); LYMPHOCYTES % (AUTO) 41.3 % (20.0-45.0); MEAN CORPUSCULAR VOLUME 90 FL (80-99); MONOCYTES % (AUTO) 10.3 % (1.0-10.0); NEUTROPHILS % (AUTO) 45.8 % (45.0-75.0); PLATELET COUNT 150 K/UL (150-450); RED BLOOD COUNT 3.54 M/UL (4.20-5.40); RED CELL DISTRIBUTION WIDTH 14.1 % (11.6-14.8); WHITE BLOOD COUNT 3.7 K/UL (4.8-10.8)
[2017-06-03 07:38] LABS: ALANINE AMINOTRANSFERASE 20 U/L (12-78); ALBUMIN 2.5 G/DL (3.4-5.0); ALBUMIN/GLOBULIN RATIO 0.7 (1.0-2.7); ALKALINE PHOSPHATASE 57 U/L (46-116); ANION GAP 8 mmol/L (5-15); ASPARTATE AMINO TRANSFERASE 27 U/L (15-37); BILIRUBIN,TOTAL 0.2 MG/DL (0.2-1.0); BLOOD UREA NITROGEN 16 mg/dL (7-18); CALCIUM 8.5 MG/DL (8.5-10.1); CARBON DIOXIDE 24 MMOL/L (21-32); CHLORIDE 108 MMOL/L (98-107); CREATININE 0.8 MG/DL (0.55-1.30); SODIUM 140 MMOL/L (136-145)
[2017-06-03 08:00] VITALS: BP 123/69
[2017-06-03] MEDS: OXcarbazepine 150mg tab ORAL SCH (09:49)
[2017-06-03] MEDS: Aspirin EC 81mg tab ORAL SCH (09:49)
[2017-06-03] MEDS: Irbesartan 150mg tablet ORAL SCH (09:49)
[2017-06-03] MEDS: Donepezil 10mg tab ORAL SCH (09:50)
[2017-06-03] MEDS: Docusate 100mg cap ORAL SCH ×2 (09:50→17:27)
[2017-06-03] MEDS: Thiamine 100mg tab ORAL SCH (09:50)
[2017-06-03] MEDS: Vitamin D 1000 IU Tab ORAL SCH (09:50)
[2017-06-03] MEDS: Analgesic Balm 15gm TOPIC SCH ×4 (09:51→20:49)
--- NOTE | 2017-06-03 10:32 | Nephrology Progress Note ---
Assessment/Plan Problem List: (1) Hematuria (2) Urinary tract infection (3) HTN (hypertension), benign Assessment UTI Bladder Prolapse Psych Ds Plan per ID and Uro adjust BP meds Subjective ROS Limited/Unobtainable: No Objective Objective Last 24 Hour Vital Signs Date Time Temp Pulse Resp B/P (MAP) Pulse Ox O2 Delivery O2 Flow Rate FiO2 06/03/17 09:50 69 123/69 06/03/17 09:49 123/69 06/03/17 08:00 97.3 69 19 123/69 98 97.3 06/03/17 04:00 98.2 70 20 100/55 100 Room Air 98.2 06/03/17 04:00 100 Room Air 06/03/17 00:00 98 Room Air 06/03/17 00:00 98.6 70 20 110/60 98 Room Air 98.6 06/02/17 20:04 99.0 89 20 107/62 97 Room Air 99.0 84 06/02/17 20:04 97 Room Air 06/02/17 16:00 97.7 73 19 102/55 97 97.7 06/02/17 12:00 97.7 79 20 100/58 98 Room Air 97.7 79 Intake and Output 06/02/17 06/03/17 19:00 07:00 Intake Total 750 ml Output Total 850 ml 550 ml Balance -100 ml -550 ml Intake Oral 750 ml Output Urine Total 850 ml 550 ml # Bowel Movements 1 1 Laboratory Tests 06/03/17 05:35: White Blood Count 3.7L, Red Blood Count 3.54L, Hemoglobin 10.7L, Hematocrit 31.9L, Mean Corpuscular Volume 90, Mean Corpuscular Hemoglobin 30.1, Mean Corpuscular Hemoglobin Concent 33.5, Red Cell Distribution Width 14.1, Platelet Count 150, Mean Platelet Volume 8.3, Neutrophils (%) (Auto) 45.8, Lymphocytes (% ) (Auto) 41.3, Monocytes (%) (Auto) 10.3H, Eosinophils (%) (Auto) 1.0, Basophils (%) (Auto) 1.6, Sodium Level 140, Potassium Level 4.0, Chloride Level 108H, Carbon Dioxide Level 24, Anion Gap 8, Blood Urea Nitrogen 16, Creatinine 0.8, Estimat Glomerular Filtration Rate , Glucose Level 85, Calcium Level 8.5, Total Bilirubin 0.2, Aspartate Amino Transf (AST/SGOT) 27, Alanine Aminotransferase (ALT/SGPT) 20, Alkaline Phosphatase 57, Total Protein 6.1L, Albumin 2.5L, Globulin 3.6, Albumin/Globulin Ratio 0.7L Height (Feet): 5 Height (Inches): 2.00 Weight (Pounds): 110 General Appearance: no apparent distress Objective no change RODRIGO DEJESUS Jun 03, 2017 10:32
[2017-06-03 12:00] VITALS: BP 139/76
[2017-06-03] MEDS: cefTRIAXone 1 GM in D5W 55 ML IVPB SCH (13:51)
[2017-06-03 16:00] VITALS: BP 113/64
--- NOTE | 2017-06-03 16:55 | General Progress Note ---
Assessment/Plan Problem List: (1) Urinary tract infection ICD Codes: N39.0 - Urinary tract infection, site not specified SNOMED: 16495359 (2) Hematuria ICD Codes: R31.9 - Hematuria, unspecified SNOMED: 98951172 (3) HTN (hypertension), benign ICD Codes: I10 - HTN (hypertension), benign SNOMED: 73630917 Status: progressing Assessment/Plan uti is check h/h afebrile reviewed chart and labs hematurea improving atonic bladder Subjective ROS Limited/Unobtainable: Yes Allergies: Coded Allergies: CODEINE (Verified Allergy, Mild, Itching, 01/31/14) Objective Last 24 Hour Vital Signs Date Time Temp Pulse Resp B/P (MAP) Pulse Ox O2 Delivery O2 Flow Rate FiO2 06/03/17 16:00 98.1 74 19 113/64 99 98.1 06/03/17 12:00 98.4 76 18 139/76 97 98.4 06/03/17 09:50 69 123/69 06/03/17 09:49 123/69 06/03/17 08:00 97.3 69 19 123/69 98 97.3 06/03/17 04:00 98.2 70 20 100/55 100 Room Air 98.2 06/03/17 04:00 100 Room Air 06/03/17 00:00 98 Room Air 06/03/17 00:00 98.6 70 20 110/60 98 Room Air 98.6 06/02/17 20:04 99.0 89 20 107/62 97 Room Air 99.0 84 06/02/17 20:04 97 Room Air Intake and Output 06/02/17 06/03/17 19:00 07:00 Intake Total 750 ml Output Total 850 ml 550 ml Balance -100 ml -550 ml Intake Oral 750 ml Output Urine Total 850 ml 550 ml # Bowel Movements 1 1 Laboratory Tests 06/03/17 05:35: White Blood Count 3.7L, Red Blood Count 3.54L, Hemoglobin 10.7L, Hematocrit 31.9L, Mean Corpuscular Volume 90, Mean Corpuscular Hemoglobin 30.1, Mean Corpuscular Hemoglobin Concent 33.5, Red Cell Distribution Width 14.1, Platelet Count 150, Mean Platelet Volume 8.3, Neutrophils (%) (Auto) 45.8, Lymphocytes (% ) (Auto) 41.3, Monocytes (%) (Auto) 10.3H, Eosinophils (%) (Auto) 1.0, Basophils (%) (Auto) 1.6, Sodium Level 140, Potassium Level 4.0, Chloride Level 108H, Carbon Dioxide Level 24, Anion Gap 8, Blood Urea Nitrogen 16, Creatinine 0.8, Estimat Glomerular Filtration Rate , Glucose Level 85, Calcium Level 8.5, Total Bilirubin 0.2, Aspartate Amino Transf (AST/SGOT) 27, Alanine Aminotransferase (ALT/SGPT) 20, Alkaline Phosphatase 57, Total Protein 6.1L, Albumin 2.5L, Globulin 3.6, Albumin/Globulin Ratio 0.7L Height (Feet): 5 Height (Inches): 2.00 Weight (Pounds): 110 Yinka Fernandez MD Jun 03, 2017 16:55
[2017-06-03 20:00] VITALS: BP 101/51
[2017-06-03] MEDS ORDERED: NS 275ml ONE (21:45)
[2017-06-03] MEDS ORDERED: Tubing IV Secondary IV ONE (21:45)
[2017-06-04] VITALS (7 sets, daily range): BP systolic 101–131; BP diastolic 56–72
[2017-06-04] MEDS ORDERED: NS 275ml ONE (09:30)
[2017-06-04] MEDS: Donepezil 10mg tab ORAL SCH (09:31)
[2017-06-04] MEDS: Aspirin EC 81mg tab ORAL SCH (09:31)
[2017-06-04] MEDS: OXcarbazepine 150mg tab ORAL SCH (09:31)
[2017-06-04] MEDS: Vitamin D 1000 IU Tab ORAL SCH (09:31)
[2017-06-04] MEDS: Thiamine 100mg tab ORAL SCH (09:31)
[2017-06-04] MEDS: Analgesic Balm 15gm TOPIC SCH ×4 (09:32→20:49)
[2017-06-04] MEDS: Docusate 100mg cap ORAL SCH ×2 (09:32→17:39)
[2017-06-04] MEDS: Irbesartan 150mg tablet ORAL SCH (10:27)
--- NOTE | 2017-06-04 11:43 | Nephrology Progress Note ---
Assessment/Plan Problem List: (1) Hematuria (2) Urinary tract infection (3) HTN (hypertension), benign Assessment UTI Bladder Prolapse Psych Ds Plan per ID and Uro adjust BP meds Subjective ROS Limited/Unobtainable: No Objective Objective Last 24 Hour Vital Signs Date Time Temp Pulse Resp B/P (MAP) Pulse Ox O2 Delivery O2 Flow Rate FiO2 06/04/17 10:27 131/72 06/04/17 10:20 64 131/72 06/04/17 09:45 131/72 06/04/17 08:00 98.1 64 20 101/64 99 98.1 06/04/17 04:00 97.9 70 20 110/69 96 Room Air 97.9 06/04/17 00:00 98.1 72 18 107/66 97 Room Air 98.1 06/03/17 20:00 98.8 71 17 101/51 97 Room Air 98.8 06/03/17 16:00 98.1 74 19 113/64 99 98.1 06/03/17 12:00 98.4 76 18 139/76 97 98.4 Intake and Output 06/03/17 06/04/17 19:00 07:00 Intake Total 625 ml Output Total 375 ml 550 ml Balance 250 ml -550 ml Intake Oral 570 ml IV Total 55 ml Output Urine Total 375 ml 550 ml # Bowel Movements 2 Height (Feet): 5 Height (Inches): 2.00 Weight (Pounds): 110 General Appearance: no apparent distress Objective no change RODRIGO DEJESUS Jun 04, 2017 11:43
--- NOTE | 2017-06-04 12:26 | General Progress Note ---
Assessment/Plan Assessment/Plan (1) Multiple Joint OA (2) Multiple Joint Pain She will be continued on Bengay and Tylenol as needed D/w Dr. Thapa he concurred. Subjective Date patient seen: Jun 04, 2017 Time patient seen: 12:00 - pm Allergies: Coded Allergies: CODEINE (Verified Allergy, Mild, Itching, 01/31/14) Subjective REVIEW OF SYSTEMS: Denies rash, fever, chills, sweating, dizziness, drowsiness, blurred vision, sore throat, or change in weight. She is complaining of joint pain. SUBJECTIVE: She has no new complaints pain is tolerated on the Bengay and Tylenol as needed. Objective Last 24 Hour Vital Signs Date Time Temp Pulse Resp B/P (MAP) Pulse Ox O2 Delivery O2 Flow Rate FiO2 06/04/17 10:27 131/72 06/04/17 10:20 64 131/72 06/04/17 09:45 131/72 06/04/17 08:00 98.1 64 20 101/64 99 98.1 06/04/17 04:00 97.9 70 20 110/69 96 Room Air 97.9 06/04/17 00:00 98.1 72 18 107/66 97 Room Air 98.1 06/03/17 20:00 98.8 71 17 101/51 97 Room Air 98.8 06/03/17 16:00 98.1 74 19 113/64 99 98.1 Intake and Output 06/03/17 06/04/17 19:00 07:00 Intake Total 625 ml Output Total 375 ml 550 ml Balance 250 ml -550 ml Intake Oral 570 ml IV Total 55 ml Output Urine Total 375 ml 550 ml # Bowel Movements 2 Height (Feet): 5 Height (Inches): 2.00 Weight (Pounds): 110 Objective GENERAL: Alert, awake, and oriented. HEENT: PERRLA. NECK: Range of motion is full in all directions. No tenderness to paracervical muscles. No adenopathy. LUNGS: Decreased breath sounds bilaterally. HEART: Regular. ABDOMEN: Benign. BACK: Range of motion is decreased in flexion and extension. EXTREMITIES: Upper and lower extremity range of motion is decreased due to the patient's pain and condition. No cyanosis. No clubbing. No edema. Sensory is intact. Reflexes are not obtainable. No adenopathy. ZEDNER,SAUNDRA N. P.A. Jun 04, 2017 12:26
--- NOTE | 2017-06-04 13:20 | Infectious Diseases Prog Note ---
Assessment/Plan Assessment/Plan A; E. coli UTI bladder prolapse Cirrhosis Osteoporosis compression fracture dementia P; Continue Rocephin X 1 day Subjective ROS Limited/Unobtainable: No Constitutional: Reports: no symptoms Respiratory: Reports: no symptoms Cardiovascular: Reports: no symptoms Gastrointestinal/Abdominal: Reports: no symptoms Genitourinary: Reports: no symptoms Musculoskeletal: Reports: pain Allergies: Coded Allergies: CODEINE (Verified Allergy, Mild, Itching, 01/31/14) Objective Vital Signs Last 24 Hour Vital Signs Date Time Temp Pulse Resp B/P (MAP) Pulse Ox O2 Delivery O2 Flow Rate FiO2 06/04/17 12:00 99.0 69 19 129/60 100 99.0 06/04/17 10:27 131/72 06/04/17 10:20 64 131/72 06/04/17 09:45 131/72 06/04/17 08:00 98.1 64 20 101/64 99 98.1 06/04/17 04:00 97.9 70 20 110/69 96 Room Air 97.9 06/04/17 00:00 98.1 72 18 107/66 97 Room Air 98.1 06/03/17 20:00 98.8 71 17 101/51 97 Room Air 98.8 06/03/17 16:00 98.1 74 19 113/64 99 98.1 Height (Feet): 5 Height (Inches): 2.00 Weight (Pounds): 110 General Appearance: no acute distress HEENT: mucous membranes moist Respiratory/Chest: lungs clear Cardiovascular: normal rate Abdomen: soft, non tender Genitourinary: other - Valenzuela catheter Extremities: no edema Neurologic/Psychiatric: alert, responsive Current Medications Medications (Trade) Dose Ordered Sig/Nenita Route PRN Reason Start Time Stop Time Status Last Admin Dose Admin Acetaminophen (Tylenol) 650 mg QIDPRN PRN ORAL Mild Pain/Temp > 100.5 05/31/17 09:15 06/30/17 09:14 06/01/17 16:22 Amlodipine Besylate (Norvasc) 2.5 mg DAILY ORAL 06/05/17 09:00 07/05/17 08:59 Aspirin (Ecotrin) 81 mg DAILY ORAL 05/31/17 09:00 06/30/17 08:59 06/04/17 09:31 Atorvastatin Calcium (Lipitor) 10 mg QHS ORAL 05/30/17 21:00 06/29/17 20:59 06/03/17 20:48 Ceftriaxone Sodium 1 gm/ Dextrose 55 ml @ 110 mls/hr Q24H IVPB 06/01/17 14:30 06/08/17 14:29 06/03/17 13:51 Docusate Sodium (Colace) 100 mg BID ORAL 05/30/17 18:00 06/29/17 17:59 06/04/17 09:32 Donepezil HCl (Aricept) 10 mg DAILY ORAL 05/31/17 09:00 06/30/17 08:59 06/04/17 09:31 Fish Oil (Fish Oil) 1,000 mg DAILY ORAL 05/31/17 09:00 06/30/17 08:59 06/04/17 09:31 Gabapentin (Neurontin) 100 mg BID ORAL 05/30/17 18:00 06/29/17 17:59 06/04/17 09:32 Irbesartan (Avapro) 150 mg DAILY ORAL 05/31/17 09:00 06/30/17 08:59 06/04/17 10:27 Megestrol Acetate (Megace) 40 mg TWICE A DAY ORAL 05/30/17 18:00 06/29/17 17:59 06/04/17 09:32 Menthol/Methyl Salicylate (Bengay) 1 applic FOUR TIMES A DAY TOPIC 06/02/17 09:00 07/02/17 08:59 06/04/17 12:58 Oxcarbazepine (Trileptal) 150 mg DAILY ORAL 05/31/17 09:00 06/30/17 08:59 06/04/17 09:31 Risperidone (RisperDAL) 0.5 mg Q12H PRN ORAL Agitation 05/30/17 17:00 06/29/17 16:59 Thiamine HCl (Vitamin B1) 100 mg DAILY ORAL 05/31/17 09:00 06/30/17 08:59 06/04/17 09:31 Vitamin D (Vitamin D) 1,000 intlu DAILY ORAL 05/31/17 09:00 06/30/17 08:59 06/04/17 09:31 EMMA MARIO Jun 04, 2017 13:20
[2017-06-04] MEDS: cefTRIAXone 1 GM in D5W 55 ML IVPB SCH (14:14)
--- NOTE | 2017-06-04 14:40 | General Progress Note ---
Assessment/Plan Problem List: (1) Urinary tract infection ICD Codes: N39.0 - Urinary tract infection, site not specified SNOMED: 70769499 (2) Hematuria ICD Codes: R31.9 - Hematuria, unspecified SNOMED: 22218125 (3) HTN (hypertension), benign ICD Codes: I10 - HTN (hypertension), benign SNOMED: 76732830 Status: progressing Assessment/Plan uti is improving hematurea improved dc in am AFEBRILE reviewed chart and labs Subjective ROS Limited/Unobtainable: Yes Allergies: Coded Allergies: CODEINE (Verified Allergy, Mild, Itching, 01/31/14) Objective Last 24 Hour Vital Signs Date Time Temp Pulse Resp B/P (MAP) Pulse Ox O2 Delivery O2 Flow Rate FiO2 06/04/17 12:00 99.0 69 19 129/60 100 99.0 06/04/17 10:27 131/72 06/04/17 10:20 64 131/72 06/04/17 09:45 131/72 06/04/17 08:00 98.1 64 20 101/64 99 98.1 06/04/17 04:00 97.9 70 20 110/69 96 Room Air 97.9 06/04/17 00:00 98.1 72 18 107/66 97 Room Air 98.1 06/03/17 20:00 98.8 71 17 101/51 97 Room Air 98.8 06/03/17 16:00 98.1 74 19 113/64 99 98.1 Intake and Output 06/03/17 06/04/17 19:00 07:00 Intake Total 625 ml Output Total 375 ml 550 ml Balance 250 ml -550 ml Intake Oral 570 ml IV Total 55 ml Output Urine Total 375 ml 550 ml # Bowel Movements 2 Height (Feet): 5 Height (Inches): 2.00 Weight (Pounds): 110 Yinka Fernandez MD Jun 04, 2017 14:40
[2017-06-05] VITALS: BP 116/58
[2017-06-05 04:16] VITALS: BP 114/59
[2017-06-05 08:00] VITALS: BP 110/56
[2017-06-05] MEDS: Donepezil 10mg tab ORAL SCH (08:52)
[2017-06-05] MEDS: Docusate 100mg cap ORAL SCH (08:52)
[2017-06-05] MEDS: Aspirin EC 81mg tab ORAL SCH (08:52)
[2017-06-05] MEDS: OXcarbazepine 150mg tab ORAL SCH (08:52)
[2017-06-05] MEDS: Vitamin D 1000 IU Tab ORAL SCH (08:53)
[2017-06-05] MEDS: Thiamine 100mg tab ORAL SCH (08:53)
[2017-06-05] MEDS: Analgesic Balm 15gm TOPIC SCH ×2 (08:54→13:28)
[2017-06-05] MEDS: Irbesartan 150mg tablet ORAL SCH (09:00)
--- NOTE | 2017-06-05 09:00 | General Progress Note ---
Assessment/Plan Assessment/Plan (1) Multiple Joint OA (2) Multiple Joint Pain She will be continued on Bengay and Tylenol as needed D/w Dr. Thapa he concurred. Subjective Date patient seen: Jun 05, 2017 Time patient seen: 08:00 - am Allergies: Coded Allergies: CODEINE (Verified Allergy, Mild, Itching, 01/31/14) Subjective REVIEW OF SYSTEMS: Denies rash, fever, chills, sweating, dizziness, drowsiness, blurred vision, sore throat, or change in weight. She is complaining of joint pain. SUBJECTIVE: Patient is in bed and reports that the pain has been controlled on the medications. Objective Last 24 Hour Vital Signs Date Time Temp Pulse Resp B/P (MAP) Pulse Ox O2 Delivery O2 Flow Rate FiO2 06/05/17 08:52 100.0 06/05/17 08:00 100.0 68 18 110/56 98 100.0 06/05/17 04:16 98.6 66 16 114/59 98 98.6 06/05/17 00:00 Room Air 06/05/17 00:00 98.4 63 15 116/58 99 98.4 06/04/17 20:00 98.6 68 16 110/57 98 98.6 06/04/17 20:00 Room Air 06/04/17 16:00 97.8 67 18 112/56 98 97.8 06/04/17 12:00 99.0 69 19 129/60 100 99.0 06/04/17 10:27 131/72 06/04/17 10:20 64 131/72 06/04/17 09:45 131/72 Intake and Output 06/04/17 06/05/17 19:00 07:00 Intake Total 815 ml Output Total 400 ml 550 ml Balance 415 ml -550 ml Intake Oral 760 ml IV Total 55 ml Output Urine Total 400 ml 550 ml # Bowel Movements 1 Height (Feet): 5 Height (Inches): 2.00 Weight (Pounds): 110 Objective GENERAL: Alert, awake, and oriented. HEENT: PERRLA. NECK: Range of motion is full in all directions. No tenderness to paracervical muscles. No adenopathy. LUNGS: Decreased breath sounds bilaterally. HEART: Regular. ABDOMEN: Benign. BACK: Range of motion is decreased in flexion and extension. EXTREMITIES: Upper and lower extremity range of motion is decreased due to the patient's pain and condition. No cyanosis. No clubbing. No edema. Sensory is intact. Reflexes are not obtainable. No adenopathy. SAUNDRA BENNETT Jun 05, 2017 09:00
[2017-06-05 10:40] VITALS: BP 120/61
[2017-06-05 12:00] VITALS: BP 108/64
[2017-06-05] MEDS ORDERED: CEFTRIAXONE1 G1 IVPB (12:54)
--- NOTE | 2017-06-05 13:15 | Nephrology Progress Note ---
Assessment/Plan Problem List: (1) Hematuria (2) Urinary tract infection (3) HTN (hypertension), benign Assessment UTI Bladder Prolapse Psych Ds Plan per ID and Uro adjust BP meds Subjective ROS Limited/Unobtainable: No Objective Objective Last 24 Hour Vital Signs Date Time Temp Pulse Resp B/P (MAP) Pulse Ox O2 Delivery O2 Flow Rate FiO2 06/05/17 12:00 98.2 63 18 108/64 100 98.2 06/05/17 10:40 120/61 06/05/17 09:51 98.1 06/05/17 08:52 100.0 06/05/17 08:00 100.0 68 18 110/56 98 100.0 06/05/17 04:16 98.6 66 16 114/59 98 98.6 06/05/17 00:00 Room Air 06/05/17 00:00 98.4 63 15 116/58 99 98.4 06/04/17 20:00 98.6 68 16 110/57 98 98.6 06/04/17 20:00 Room Air 06/04/17 16:00 97.8 67 18 112/56 98 97.8 Intake and Output 06/04/17 06/05/17 19:00 07:00 Intake Total 815 ml Output Total 400 ml 550 ml Balance 415 ml -550 ml Intake Oral 760 ml IV Total 55 ml Output Urine Total 400 ml 550 ml # Bowel Movements 1 Height (Feet): 5 Height (Inches): 2.00 Weight (Pounds): 110 General Appearance: no apparent distress Objective no change RODRIGO DEJESUS Jun 05, 2017 13:15
[2017-06-05] MEDS: cefTRIAXone 1 GM in D5W 55 ML IVPB SCH (14:56)
--- NOTE | 2017-06-05 15:00 | Infectious Diseases Prog Note ---
Assessment/Plan Assessment/Plan A; E. coli UTI bladder prolapse Cirrhosis Osteoporosis compression fracture dementia P; discontinue Rocephin in case of continuance of fever will reat urine culture Subjective ROS Limited/Unobtainable: No Constitutional: Reports: fever, other - low grade in am Respiratory: Reports: no symptoms Gastrointestinal/Abdominal: Reports: no symptoms Genitourinary: Reports: no symptoms Musculoskeletal: Reports: pain, other - in thighs Allergies: Coded Allergies: CODEINE (Verified Allergy, Mild, Itching, 01/31/14) Objective Vital Signs Last 24 Hour Vital Signs Date Time Temp Pulse Resp B/P (MAP) Pulse Ox O2 Delivery O2 Flow Rate FiO2 06/05/17 12:00 98.2 63 18 108/64 100 98.2 06/05/17 10:40 120/61 06/05/17 09:51 98.1 06/05/17 09:00 63 108/64 06/05/17 09:00 108/64 06/05/17 08:52 100.0 06/05/17 08:00 100.0 68 18 110/56 98 100.0 06/05/17 04:16 98.6 66 16 114/59 98 98.6 06/05/17 00:00 Room Air 06/05/17 00:00 98.4 63 15 116/58 99 98.4 06/04/17 20:00 98.6 68 16 110/57 98 98.6 06/04/17 20:00 Room Air 06/04/17 16:00 97.8 67 18 112/56 98 97.8 Height (Feet): 5 Height (Inches): 2.00 Weight (Pounds): 110 General Appearance: no acute distress HEENT: mucous membranes moist Respiratory/Chest: lungs clear Cardiovascular: normal rate Abdomen: soft, non tender Extremities: no edema Neurologic/Psychiatric: alert, responsive Current Medications Medications (Trade) Dose Ordered Sig/Nenita Route PRN Reason Start Time Stop Time Status Last Admin Dose Admin Acetaminophen (Tylenol) 650 mg QIDPRN PRN ORAL Mild Pain/Temp > 100.5 05/31/17 09:15 06/30/17 09:14 06/05/17 08:52 Amlodipine Besylate (Norvasc) 2.5 mg DAILY ORAL 06/05/17 09:00 07/05/17 08:59 Aspirin (Ecotrin) 81 mg DAILY ORAL 05/31/17 09:00 06/30/17 08:59 06/05/17 08:52 Atorvastatin Calcium (Lipitor) 10 mg QHS ORAL 05/30/17 21:00 06/29/17 20:59 06/04/17 20:49 Ceftriaxone Sodium 1 gm/ Dextrose 55 ml @ 110 mls/hr Q24H IVPB 06/01/17 14:30 06/08/17 14:29 06/05/17 14:56 Docusate Sodium (Colace) 100 mg BID ORAL 05/30/17 18:00 06/29/17 17:59 06/05/17 08:52 Donepezil HCl (Aricept) 10 mg DAILY ORAL 05/31/17 09:00 06/30/17 08:59 06/05/17 08:52 Fish Oil (Fish Oil) 1,000 mg DAILY ORAL 05/31/17 09:00 06/30/17 08:59 06/05/17 08:53 Gabapentin (Neurontin) 100 mg BID ORAL 05/30/17 18:00 06/29/17 17:59 06/05/17 08:53 Irbesartan (Avapro) 150 mg DAILY ORAL 05/31/17 09:00 06/30/17 08:59 06/04/17 10:27 Megestrol Acetate (Megace) 40 mg TWICE A DAY ORAL 05/30/17 18:00 06/29/17 17:59 06/05/17 08:53 Menthol/Methyl Salicylate (Bengay) 1 applic FOUR TIMES A DAY TOPIC 06/02/17 09:00 07/02/17 08:59 06/05/17 13:28 Oxcarbazepine (Trileptal) 150 mg DAILY ORAL 05/31/17 09:00 06/30/17 08:59 06/05/17 08:52 Risperidone (RisperDAL) 0.5 mg Q12H PRN ORAL Agitation 05/30/17 17:00 06/29/17 16:59 Thiamine HCl (Vitamin B1) 100 mg DAILY ORAL 05/31/17 09:00 06/30/17 08:59 06/05/17 08:53 Vitamin D (Vitamin D) 1,000 intlu DAILY ORAL 05/31/17 09:00 06/30/17 08:59 06/05/17 08:53 EMMA MARIO Jun 05, 2017 15:00
--- NOTE | 2017-06-05 15:30 | General Progress Note ---
Assessment/Plan Status: stable, progressing Assessment/Plan Encephalopathy Dementia with behavioral disturbance -cont Risperdal prn -cont Aricept. -the pt was given ro Subjective Date patient seen: Jun 05, 2017 Neurologic/Psychiatric: Reports: anxiety, depressed Allergies: Coded Allergies: CODEINE (Verified Allergy, Mild, Itching, 01/31/14) Subjective the pt is doing much better. No anxiety. Objective Last 24 Hour Vital Signs Date Time Temp Pulse Resp B/P (MAP) Pulse Ox O2 Delivery O2 Flow Rate FiO2 06/05/17 12:00 98.2 63 18 108/64 100 98.2 06/05/17 10:40 120/61 06/05/17 09:51 98.1 06/05/17 09:00 63 108/64 06/05/17 09:00 108/64 06/05/17 08:52 100.0 06/05/17 08:00 100.0 68 18 110/56 98 100.0 06/05/17 04:16 98.6 66 16 114/59 98 98.6 06/05/17 00:00 Room Air 06/05/17 00:00 98.4 63 15 116/58 99 98.4 06/04/17 20:00 98.6 68 16 110/57 98 98.6 06/04/17 20:00 Room Air 06/04/17 16:00 97.8 67 18 112/56 98 97.8 Intake and Output 06/04/17 06/05/17 19:00 07:00 Intake Total 815 ml Output Total 400 ml 550 ml Balance 415 ml -550 ml Intake Oral 760 ml IV Total 55 ml Output Urine Total 400 ml 550 ml # Bowel Movements 1 Height (Feet): 5 Height (Inches): 2.00 Weight (Pounds): 110 General Appearance: no apparent distress, alert, confused Wayne Conti M.D. Jun 05, 2017 15:30
--- NOTE | 2017-06-05 15:31 | Geriatric Progress Note ---
Assessment/Plan Assessment/Plan Encephalopathy Dementia with behavioral disturbance -cont Risperdal prn -cont Aricept. -the pt was given ro Subjective Interval Events 06/04/17 Mood/Memory: Reports: prior hx, anxiety, depressed feelings, emotional problems Geriatric Geriatric Last 24 Hour Vital Signs Date Time Temp Pulse Resp B/P (MAP) Pulse Ox O2 Delivery O2 Flow Rate FiO2 06/05/17 12:00 98.2 63 18 108/64 100 98.2 06/05/17 10:40 120/61 06/05/17 09:51 98.1 06/05/17 09:00 63 108/64 06/05/17 09:00 108/64 06/05/17 08:52 100.0 06/05/17 08:00 100.0 68 18 110/56 98 100.0 06/05/17 04:16 98.6 66 16 114/59 98 98.6 06/05/17 00:00 Room Air 06/05/17 00:00 98.4 63 15 116/58 99 98.4 06/04/17 20:00 98.6 68 16 110/57 98 98.6 06/04/17 20:00 Room Air 06/04/17 16:00 97.8 67 18 112/56 98 97.8 Intake and Output 06/04/17 06/05/17 19:00 07:00 Intake Total 815 ml Output Total 400 ml 550 ml Balance 415 ml -550 ml Intake Oral 760 ml IV Total 55 ml Output Urine Total 400 ml 550 ml # Bowel Movements 1 Current Medications Medications (Trade) Dose Ordered Sig/Nenita Route PRN Reason Start Time Stop Time Status Last Admin Dose Admin Acetaminophen (Tylenol) 650 mg QIDPRN PRN ORAL Mild Pain/Temp > 100.5 05/31/17 09:15 06/30/17 09:14 06/05/17 08:52 Amlodipine Besylate (Norvasc) 2.5 mg DAILY ORAL 06/05/17 09:00 07/05/17 08:59 Aspirin (Ecotrin) 81 mg DAILY ORAL 05/31/17 09:00 06/30/17 08:59 06/05/17 08:52 Atorvastatin Calcium (Lipitor) 10 mg QHS ORAL 05/30/17 21:00 06/29/17 20:59 06/04/17 20:49 Docusate Sodium (Colace) 100 mg BID ORAL 05/30/17 18:00 06/29/17 17:59 06/05/17 08:52 Donepezil HCl (Aricept) 10 mg DAILY ORAL 05/31/17 09:00 06/30/17 08:59 06/05/17 08:52 Fish Oil (Fish Oil) 1,000 mg DAILY ORAL 05/31/17 09:00 06/30/17 08:59 06/05/17 08:53 Gabapentin (Neurontin) 100 mg BID ORAL 05/30/17 18:00 06/29/17 17:59 06/05/17 08:53 Irbesartan (Avapro) 150 mg DAILY ORAL 05/31/17 09:00 06/30/17 08:59 06/04/17 10:27 Megestrol Acetate (Megace) 40 mg TWICE A DAY ORAL 05/30/17 18:00 06/29/17 17:59 06/05/17 08:53 Menthol/Methyl Salicylate (Bengay) 1 applic FOUR TIMES A DAY TOPIC 06/02/17 09:00 07/02/17 08:59 06/05/17 13:28 Oxcarbazepine (Trileptal) 150 mg DAILY ORAL 05/31/17 09:00 06/30/17 08:59 06/05/17 08:52 Risperidone (RisperDAL) 0.5 mg Q12H PRN ORAL Agitation 05/30/17 17:00 06/29/17 16:59 Thiamine HCl (Vitamin B1) 100 mg DAILY ORAL 05/31/17 09:00 06/30/17 08:59 06/05/17 08:53 Vitamin D (Vitamin D) 1,000 intlu DAILY ORAL 05/31/17 09:00 06/30/17 08:59 06/05/17 08:53 Height (Feet): 5 Height (Inches): 2.00 Weight (Pounds): 110 General Appearance: well appearing, well dressed, no apparent distress, alert Wayne Conti M.D. Jun 05, 2017 15:31
[2017-06-05 16:00] VITALS: BP 116/56
--- NOTE | 2017-06-07 07:50 | Discharge Summary ---
Discharge Summary Discharge Summary Discharge Summary DATE OF ADMISSION: 05/30/2017 DATE OF DISCHARGE: 06/05/2017 REASON FOR ADMISSION: 82 years old female with history of hypertension, CVA ,asthma, history of bladder prolapse, presented to ED with bilateral groin pain and hematuria that started the morning prior to presentation. Patient straight catheterizes herself for the past 13 years. She has a bladder prolapse issue and had difficulty emptying her bladder after a failed surgery to correct it. She denied fever,chills,nausea, vomiting, back pain, diarrhea , rectal bleeding or gynecological complaints. She reported constant aching mild-to- moderate intensity pain. She came because she was worried about blood she saw while catheterizing herself. Upon evaluation in emergency room patient was afebrile. Laboratory workup revealed no leukocytosis, stable hemoglobin and hematocrit. Urinalysis was positive for UTI. EKG revealed normal sinus rhythm, no acute ischemic changes. Patient had a history of multidrug resistant Escherichia coli UTI. CT of the abdomen and pelvis revealed thick bladder, indicating cystitis or chronic bladder outlet obstruction. Dependent calcifications were seen within the bladder lumen. Some of these may also be within the bladder wall.Cirrhosis. Evidence of portal hypertension. Colonic diverticulosis without evidence of diverticulitis. Moderate retained stool. Anterior wedge/burst compression fracture deformity of the T11 vertebral body , likely chronic. Patient was started on empiric intravenous antibiotic and admitted for further management with diagnosis of complicated urinary tract infection, hematuria. CONSULTANTS: ID specialist Dr. Fry knitted goods shaper Dr. Guadalupe psychiatrist Dr. Conti pain specialist Dr. Thapa urologist dr Min [facility]: Patient was admitted. Urology and nephrology consults were requested along with infectious disease specialist. Urine culture revealed Escherichia coli and mixed gram-positive organism. Patient was treated with intravenous antibiotics as per infectious disease specialist recommendation. Urologist seen the patient upon presentation. He closely reviewed imaging and stated that patient had nonfunctional bladder; given bladder stones and chronic retention Valenzuela was placed. Urologist recommended to keep Valenzuela until treatment for UTI completed. Given the complex nature of urinary tract infection, likely drug-resistant, he recommended 10-14 days treatment of antibiotics. Patient to follow-up with outpatient urologist Dr. Calderon. Hematuria resolved. Hemoglobin and hematocrit stable, prior to discharge hemoglobin 10.7 , hematocrit 31.9. Field Sales Executive closely followed. Renal parameters and electrolytes were closely monitored. Electrolytes were corrected as needed. Nephrotoxics were avoided. Renal parameters remained stable. Blood pressure was managed with calcium channel fausto and angiotensin receptor fausto and remained stable. Bowel regimen instituted. Pain specialist seen the patient for chronic pain syndrome. Pain management provided as per pain specialist recommendations. Pain was controlled. Psychiatrist seen and evaluated the patient, and diagnosed patient with encephalopathy and dementia with behavioral disturbances. Aricept was continued along with Risperdal on as needed basis. Patient clinically improved and was stable for discharge to the [facility] facility. FINAL DIAGNOSES: Complicated urinary tract infection with Escherichia coli Hematuria, resolved Bladder prolapse Nonfunctional bladder Encephalopathy Dementia with behavioral disturbances Chronic pain syndrome Multiply joint osteoarthritis Hypertension DISCHARGE MEDICATIONS: See Medication Reconciliation list. DISCHARGE INSTRUCTIONS: Patient was discharged to [facility] facility. Follow up with medical doctor at the facility. Follow up with urologist Dr. Calderon as outpatient. I have been assigned to dictate discharge summary for this account. I was not involved in the patient's management. Inocencia Vargas NP ([place]) June 07, 2017 07:50
== END 2017-06-05 17:05 | DRG 689 ==
LOC: EDBD 10:05 → EMR 10:22 → 4W 14:03 → EDBEDREQ 14:43 → 4W 17:31
DX: N39.0 Urinary tract infection, site not specified (principal); G93.40 Encephalopathy, unspecified; F01.51 Vascular dementia, unspecified severity, with behavioral disturbance; N31.2 Flaccid neuropathic bladder, not elsewhere classified; N21.0 Calculus in bladder; R31.9 Hematuria, unspecified; N81.10 Cystocele, unspecified; K74.60 Unspecified cirrhosis of liver; G89.4 Chronic pain syndrome; R33.9 Retention of urine, unspecified; Z88.6 Allergy status to analgesic agent; M15.9 Polyosteoarthritis, unspecified; Z86.73 Personal history of transient ischemic attack (TIA), and cerebral infarction without residual deficits; J44.9 Chronic obstructive pulmonary disease, unspecified; E78.00 Pure hypercholesterolemia, unspecified; E11.9 Type 2 diabetes mellitus without complications; B96.20 Unspecified Escherichia coli [E. coli] as the cause of diseases classified elsewhere; M81.0 Age-related osteoporosis without current pathological fracture
CPT/HCPCS: 36415; 74177; 80053; 81003; 83036; 83690; 83735; 83880; 84100; 84443; 84550; 85007; 85025; 86140; 87086; 87181; 99285; J2405